=== PATIENT | female | born 1955 | race Caucasian/White ===

== ENCOUNTER → 2024-02-08 14:27 | Outpatient (REF) | payer OTHER, SELFPAY | LOC: RCS 14:27 | PROVIDERS: ATTENDING PHYSICIAN Internal Medicine Cardiovascular Disease; FAMILY PHYSICIAN Family Medicine; OTHER PHYSICIAN Obstetrics & Gynecology Gynecologic Oncology; REFERRING PHYSICIAN Obstetrics & Gynecology | DX: R55 Syncope and collapse (principal); C54.1 Malignant neoplasm of endometrium; C78.01 Secondary malignant neoplasm of right lung; C78.02 Secondary malignant neoplasm of left lung | CPT/HCPCS: 93306; 93356 ==

== ENCOUNTER → 2024-02-14 08:43 | Outpatient (REF) | payer OTHER, SELFPAY ==
[2024-02-14 09:08] VITALS: BP_SYST 67
[2024-02-14] MEDS: ATIVAN 0.5 MG IV (09:18)
[2024-02-14] MEDS: ANCEF 10 IV (09:43)
[2024-02-14 11:12] VITALS: BP 129/73
== END ==
LOC: RADI 08:43
PROVIDERS: ATTENDING PHYSICIAN Obstetrics & Gynecology Gynecologic Oncology; FAMILY PHYSICIAN Family Medicine
DX: C54.1 Malignant neoplasm of endometrium (principal); Z79.899 Other long term (current) drug therapy
CPT/HCPCS: 36561; 76937; 77001; 99152; 99153; C1788

== ENCOUNTER 2024-03-18 23:45 | Inpatient (IN) | payer OTHER, SELFPAY ==
[2024-03-18 15:53] VITALS: BP 107/77
[2024-03-18] MEDS: TYLENOL 650 MG PO (16:03)
[2024-03-18 16:46] LABS: COVID-19 Antigen Negative (Negative)
[2024-03-18 16:48] LABS: Blood Urea Nitrogen 18 mg/dl (7-17); Calcium 9.3 mg/dl (8.4-10.2); Carbon Dioxide 20 mmol/L (22-30); Chloride 100 mmol/L (98-107); Glucose 125 mg/dl (70-99); Sodium 132 mmol/L (135-145); eGFR > 60.00
--- NOTE | 2024-03-18 20:16 | ED.GENMED ---
History of Present Illness
<MIKE Branch - Last Filed: 03/18/24 22:41>
General
Chief Complaint: Fever
Source: patient
Exam Limitations: none
Time Seen by Provider: 03/18/24 19:46
Travel History
Have you had any contact with someone who has COVID-19?: No
Do you have any symptoms of coronavirus? Fever > 100 degrees, chills, cough, shortness of breath, sore throat, loss of taste or smell, muscle aches, or headache?: Yes
Symptoms:: fever
History of Present Illness
History of Present Illness:
This is a 69 year old female that comes in with c/o fever. States that she had a fever of 102 at home today. States that she called the Oncologist office and was told to come to the ER. States that she had chemotherapy of Adriamycin on Sunday and
she had her Neulasta injection on Sunday. Denies chills, chest pain, SOB, abd pain, nausea, vomiting, diarrhea, headache, dizziness, urinary burning.
Past History
<MIKE Branch - Last Filed: 03/18/24 22:41>
Past History
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
ED Past Surgical History: Cholecystectomy, , Gynecological (Hysterectomy) and Orthopedic (left total hip replacement )
Social History
Tobacco: Non-smoker
Alcohol: Occasional
Personal:
Living: with family
Review of Systems
<MIKE Branch - Last Filed: 03/18/24 22:41>
Review of Systems
All Other Systems: ROS reviewed and negative except as documented in HPI and ROS
Constitutional: Reports fever; Denies chills
EENT: Reports no symptoms
Respiratory: Reports no symptoms; Denies cough or trouble breathing
Cardiac: Reports no symptoms; Denies chest pain
ABD/GI: Reports no symptoms; Denies abdominal pain, nausea, vomiting or diarrhea
: Reports no symptoms; Denies dysuria, frequency or urgency
Musculoskeletal: Reports no symptoms
Skin: Reports no symptoms
Neurological: Reports no symptoms; Denies dizzy or headache
Psychiatric: Reports no symptoms
Phy Exam
<MIKE Branch - Last Filed: 03/18/24 22:41>
General Physical Exam
General Presentation: no apparent distress
General age: appears stated age
General Skin: warm and dry
General Habitus: normal
General Mental: alert
General Hydration: appears well hydrated
ENT Exam
ENT Exam: TM's normal, pharynx normal and neck supple
Eye Exam
Eye Exam: EOMI
Cardiovascular Exam
Cardiovascular Exam: regular rate/rhythm and normal peripheral pulses
Pulmonary Exam
Pulmonary Exam: lungs clear, no respiratory distress, no rales, chest non tender, no crackles, no rhonchi, no wheezing and no cough
Gastrointestinal Exam
Gastrointestinal Exam: normal bowel sounds, non tender, soft, no organomegaly, no pulsatile mass and non distended
Musculoskeletal Exam
Musculoskeletal Exam: full ROM and edema (Slight ankles)
Skin Exam
Skin Exam: normal color, warm/dry, no rash and no petechia
Psychiatric Exam
Psychiatric Exam: normal mood/affect
Course
<MIKE Branch - Last Filed: 03/18/24 22:41>
Orders/Labs/Results
Orders:
Orders
03/18/24 15:57
EKG [Electrocardiogram (*1)] Urgent
Reason for Study: Tachycardia
03/18/24 15:58
EKG- Treatment ONCE
03/18/24 16:00
Acetaminophen [Tylenol] 650 mg .ROUTE .STK-MED ONE
03/18/24 16:02
Acetaminophen [Tylenol] 650 mg PO NOW STA
03/18/24 16:08
Basic Metabolic Panel Urgent
COVID-19 Antigen Urgent
Source: Nasal Swab
Blood Culture Urgent
MARLENE Source: Blood/Venous
Specimen Description:
Influenza A+B Rapid Molecular Urgent
MARLENE Source: Nasal Swab
Specimen Description:
03/18/24 19:57
Complete Blood Count/With Diff Urgent
Lactate Level [Lactic Acid] Urgent
03/18/24 20:16
CR Chest - 2 Views Urgent
Comment:
Reason For Exam: Fever
03/18/24 20:27
Urinalysis Reflex To Culture Urgent
Date Specimen was Collected: 03/18/24
Time Specimen was Collected: 20:24
03/18/24 20:34
Blood Culture Urgent
MARLENE Source: Blood/Venous
Specimen Description:
Comment: From Port
03/18/24 22:32
Piperacillin/Tazo 3.375 Gram [Zosyn] 3.375 gram in 50 ml IV NOW
Vancomycin 1 Gram/200 ml [Vancocin] 1 gram in 200 ml IV NOW
03/18/24 22:59
Admit/Transfer Patient As Directed
Co-Sign Provider:
Level of Care: Inpatient admission
Assign to:: Medical/Surgical
Physician / Group: jaxson
Diagnosis: neutropenic sepsis
Reason for Hospitalization: neutropenic sepsis
Expected length of stay greater than two midnights?: Yes
ELOS- Estimated Length of Stay in days: 2
I certify the patient meets the requirements for IP care: Yes
Code Status As Directed
Resuscitation Status: Full Code
03/18/24 23:06
Consult Notification Routine
Specialty to Notify: Oncology
ONCOLOGY CONSULT Routine
Consulting Provider: Vikram Dunbar
Was physician already notified: No
Reason for consult: neutropenic sepsis
Abnormal Lab Results
03/18/24 03/18/24 03/18/24
16:08 19:57 20:27
WBC 0.8 L* 10^3/uL
(4.8-10.8)
RBC 3.12 L 10^6/uL
(4.20-5.40)
Hgb 10.8 L g/dL
(12.0-16.0)
Hct 29.1 L %
(37.0-47.0)
MCH 34.6 H pg
(27.0-31.0)
MCHC 37.1 H g/dL
(33.0-37.0)
Plt Count 64 L 10^3/uL
(130-400)
Absolute Neuts (auto) 0.2 L* 10^3/uL
(1.4-6.5)
Absolute Lymphs (auto) 0.3 L 10^3/uL
(1.2-3.4)
Immature Gran % 5.3 H %
(0-0.5)
Neutrophils % 32.1 L %
(42.2-75.2)
Basophils % 4.0 H %
(0-2)
Sodium 132 L mmol/L
(135-145)
Carbon Dioxide 20 L mmol/L
(22-30)
BUN 18 H mg/dl
(7-17)
Creatinine 0.5 L mg/dL
(0.6-1.0)
Glucose 125 H mg/dl
(70-99)
Urine Urobilinogen 2+ A
(Neg - 1+)
03/18/24 19:57
03/18/24 16:08
Pancytopenia, H/H low. Abs neuts Very low, Sodium slightly low. Carbon dioxide low. Dehydration. Glucose nonfasting. Lactic acid normal at 1.5, COVID and influenza negative, Urine negative for infection.
Vital Signs
Initial and Last Documented VS:
Initial Vital Signs
Temp Pulse Resp BP Pulse Ox
100.7 F H 110 19 107/77 96
03/18/24 15:53 03/18/24 15:53 03/18/24 15:53 03/18/24 15:53 03/18/24 15:53
Last Documented Vital Signs
Temp Pulse Resp BP Pulse Ox
98.1 F 110 19 107/77 96
03/18/24 20:37 03/18/24 15:53 03/18/24 15:53 03/18/24 15:53 03/18/24 15:53
<Vlad Rai, DO - Last Filed: 03/18/24 23:18>
Orders/Labs/Results
Orders:
Orders
03/18/24 15:57
EKG [Electrocardiogram (*1)] Urgent
Reason for Study: Tachycardia
03/18/24 15:58
EKG- Treatment ONCE
03/18/24 16:00
Acetaminophen [Tylenol] 650 mg .ROUTE .STK-MED ONE
03/18/24 16:02
Acetaminophen [Tylenol] 650 mg PO NOW STA
03/18/24 16:08
Basic Metabolic Panel Urgent
COVID-19 Antigen Urgent
Source: Nasal Swab
Blood Culture Urgent
MARLENE Source: Blood/Venous
Specimen Description:
Influenza A+B Rapid Molecular Urgent
MARLENE Source: Nasal Swab
Specimen Description:
03/18/24 19:57
Complete Blood Count/With Diff Urgent
Lactate Level [Lactic Acid] Urgent
03/18/24 20:16
CR Chest - 2 Views Urgent
Comment:
Reason For Exam: Fever
03/18/24 20:27
Urinalysis Reflex To Culture Urgent
Date Specimen was Collected: 03/18/24
Time Specimen was Collected: 20:24
03/18/24 20:34
Blood Culture Urgent
MARLENE Source: Blood/Venous
Specimen Description:
Comment: From Port
03/18/24 22:32
Piperacillin/Tazo 3.375 Gram [Zosyn] 3.375 gram in 50 ml IV NOW
Vancomycin 1 Gram/200 ml [Vancocin] 1 gram in 200 ml IV NOW
03/18/24 22:59
Admit/Transfer Patient As Directed
Co-Sign Provider:
Level of Care: Inpatient admission
Assign to:: Medical/Surgical
Physician / Group: jaxson
Diagnosis: neutropenic sepsis
Reason for Hospitalization: neutropenic sepsis
Expected length of stay greater than two midnights?: Yes
ELOS- Estimated Length of Stay in days: 2
I certify the patient meets the requirements for IP care: Yes
Code Status As Directed
Resuscitation Status: Full Code
03/18/24 23:06
Consult Notification Routine
Specialty to Notify: Oncology
ONCOLOGY CONSULT Routine
Consulting Provider: Vikram Dunbar
Was physician already notified: No
Reason for consult: neutropenic sepsis
Abnormal Lab Results
03/18/24 03/18/24 03/18/24
16:08 19:57 20:27
WBC 0.8 L* 10^3/uL
(4.8-10.8)
RBC 3.12 L 10^6/uL
(4.20-5.40)
Hgb 10.8 L g/dL
(12.0-16.0)
Hct 29.1 L %
(37.0-47.0)
MCH 34.6 H pg
(27.0-31.0)
MCHC 37.1 H g/dL
(33.0-37.0)
Plt Count 64 L 10^3/uL
(130-400)
Absolute Neuts (auto) 0.2 L* 10^3/uL
(1.4-6.5)
Absolute Lymphs (auto) 0.3 L 10^3/uL
(1.2-3.4)
Immature Gran % 5.3 H %
(0-0.5)
Neutrophils % 32.1 L %
(42.2-75.2)
Basophils % 4.0 H %
(0-2)
Sodium 132 L mmol/L
(135-145)
Carbon Dioxide 20 L mmol/L
(22-30)
BUN 18 H mg/dl
(7-17)
Creatinine 0.5 L mg/dL
(0.6-1.0)
Glucose 125 H mg/dl
(70-99)
Urine Urobilinogen 2+ A
(Neg - 1+)
03/18/24 19:57
03/18/24 16:08
Vital Signs
Initial and Last Documented VS:
Initial Vital Signs
Temp Pulse Resp BP Pulse Ox
100.7 F H 110 19 107/77 96
03/18/24 15:53 03/18/24 15:53 03/18/24 15:53 03/18/24 15:53 03/18/24 15:53
Last Documented Vital Signs
Temp Pulse Resp BP Pulse Ox
98.1 F 110 19 107/77 96
03/18/24 20:37 03/18/24 15:53 03/18/24 15:53 03/18/24 15:53 03/18/24 15:53
<MIKE Branch - Last Filed: 03/18/24 22:41>
MDM/Problems Addressed
Differential Diagnosis Includes:
Neutropenic fever, Viral syndrome
MDM/Problems Addressed:
This is a 69 year old female that comes in with c/o fever. States that she had a fever of 102 at home today and the Oncologist said to come to the ER.
Will check labs,urine and chest x-ray
Back into see patient. Explained that she would be admitted. Explained that her WBC. RBC and plt are very low along with the absolute Neuts. Will start antibiotics and admit. Hospitalist notified.
Chronic conditions affecting care: Cancer
Acute Exacerbation and/or Progression of Chronic Illness: Cancer
<MIKE Branch - Last Filed: 03/18/24 22:41>
*Radiology
Radiology exam reviewed: preliminary read by ED provider (Chest- negative for active disease) and radiology read reviewed (Chest- No acute disease of the chest. Possible bilateral lower lobe pulmonary nodules. These may be benign granulomas.
Nonurgent dedicated CT of the chest recommended when the patient is able. New. )
*Pulse Oximetry
Patient hypoxic: no
*EKG
Interpreted by ED Provider?: Yes
Heart Rate: 94
Rate: normal
Rhythm: sinus
[place]: left axis deviation
Interval: normal interval
QRS Pattern: low voltage
Ischemia: non-specific ST changes (T wave changes- V3, V4, V5, V6)
*Flame Gouger Interpretation
Rate: Flame Gouger- N/A
*Critical Care Note
Total Time (30-74mins, 75-104mins- exclusive of procedures): Not Applicable
ED Attending Note
<MIKE Branch - Last Filed: 03/18/24 22:41>
-
Portions of this chart may have been created with voice recognition software.� Occasional wrong word or��sound alike� substitutions may have occurred due to the inherent limitations of voice recognition software.
<Vlad Rai DO - Last Filed: 03/18/24 23:18>
ED Attending Note
Patient seen and examined by attending physician: Yes
I performed the substantive portion of visit, reviewed & personally made and approve the management plan that is documented in note by myself or LEI.: Yes
ED Attending Note:
I have reviewed and agree with history and treatment plan by Lorin West. Patient with pancytopenia, neutropenic fever. Agree with treatment plan.
Discharge Plan
Departure
Patient Disposition: Admit
Date of Disposition: 03/18/24
Time of Disposition: 22:37
Admit to: Med/Surg
Presentation/result/management discussed w/ accepting MD/DO: Hospitalist
Patient with high blood pressure during this ER visit?: No
Condition: Good
Covid-19: Not Applicable
Discharge Problem:
Neutropenia with fever, Pancytopenia
Prescriptions:
No Action
atenolol 100 MG tablet
100 mg PO DAILY
diphenhydramine HCl [Benadryl] 25 mg Capsule
25 mg PO DAILY PRN (Reason: seasonal allergies)
hydrochlorothiazide 25 mg Tablet
25 mg PO DAILY
losartan 100 mg Tablet
100 mg PO DAILY
prochlorperazine maleate 10 mg tablet
10 mg PO Q6H PRN (Reason: nausea/vomiting)
lidocaine-prilocaine 2.5-2.5 % cream
1 applic topical DAILY PRN (Reason: prior to port access)
Chemo
1 dose IV Q3W
Neulasta
1 dose SC Q3W
Referrals:
Gaurav Macario MD [Family Provider] -
Interventions
Interventions:
*Risk Screen - Suicide Last Done: 03/18/24 20:02
*General Assessment Last Done: 03/18/24 20:02
*Neglect/Abuse Screening Last Done: 03/18/24 20:02
ED- Fall Risk Assessment Last Done: 03/18/24 20:02
*ED COVID-19 Vaccine History Last Done: 03/18/24 20:02
ED- Neurological Assessment Last Done: 03/18/24 20:02
ED-Skin Assessment Last Done: 03/18/24 20:02
Discharge Date and Time
Print Language: [place]
[2024-03-18 20:38] LABS: Urine Albumin Negative (Neg - Trace); Urine Bilirubin Negative (Negative); Urine Character Clear (Clear); Urine Color Amber; Urine Glucose Negative (Negative); Urine Ketone Negative (Negative); Urine Leukocyte Negative (Negative); Urine Nitrite Negative (Negative); Urine Occult Blood Negative (Negative); Urine Specific Gravity 1.015 (<1.030); Urine Urobilinogen 2+ (Neg - 1+)
[2024-03-18 20:41] VITALS: BP 109/68
[2024-03-18 21:30] LABS: % Eosinophils 5.3 % (0-6); % Immature Granulocytes 5.3 % (0-0.5); % Lymphocytes 45.3 % (20.5-51.1); % Neutrophils 32.1 % (42.2-75.2); Absolute Lymphocytes 0.3 10^3/uL (1.2-3.4); Absolute Monocytes 0.1 10^3/uL (0.1-0.6); Hematocrit 29.1 % (37.0-47.0); Hemoglobin 10.8 g/dL (12.0-16.0); Mean Corp Hgb Conc. 37.1 g/dL (33.0-37.0); Mean Corpuscular Hgb 34.6 pg (27.0-31.0); Mean Corpuscular Volume 93.3 fL (81.0-99.0); Mean Platelet Volume 9.6 fL (7.4-10.4); Nucleated Red Blood Cells % 0 %; Platelet Count 64 10^3/uL (130-400); Red Blood Cell Count 3.12 10^6/uL (4.20-5.40); Red Cell Dist. Width 13.2 % (11.5-14.5)
[2024-03-18 21:40] LABS: Lactic Acid 1.5 mmol/L (0.7-2.0)
[2024-03-18 22:11] LABS: White Blood Cell Count 0.8 10^3/uL (4.8-10.8)
[2024-03-18 22:12] LABS: Absolute Neutrophils 0.2 10^3/uL (1.4-6.5)
--- NOTE | 2024-03-18 23:02 | HPS.HSE ---
Family Physician
-
Family Physician: Gaurav Macario
Chief Complaint
-
fever
History of Present Illness
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 Patient had fever 102 today. She called oncologist office
and was told to come to the emergency room. She had chemotherapy with Adriamycin last week. She had Neulasta injection 6 days ago. Denies chest pain, cough, sore throat, runny nose shortness of breath, abdominal pain, nausea vomiting, diarrhea,
headache, dizziness, urinary symptoms, rashes.
Denies smoking or alcohol use.
Patient follows Dr. Martinez and Dr. Yu.
Medical History
Past Medical History
Past Medical History: Reports Other (uterine sarcoma with metastases to lung on chemotherapy, hypertension, osteoarthritis, hyperlipidemia)
Past Surgical History: Reports Other (Cholecystectomy, , Gynecological (Hysterectomy) and Orthopedic (left total hip replacement ))
Social History
Tobacco: Non-smoker
Alcohol: None
Drug: None
Family History
Family History: Not pertinent
Allergies / Home Medications
Allergies reflects when Allergies were last updated in [employer].
Home Medications with original date entered in [employer]
Allergy/Medication List:
Allergies
Allergy/AdvReac Type Severity Reaction Status Date / Time
gluten Allergy Unknown Verified 03/18/24 16:01
No Known Drug Allergies Allergy Unknown Verified 03/18/24 16:01
seasonal Allergy sneezing Uncoded 03/18/24 16:01
Home Medications
atenolol 100 mg tablet 100 mg PO DAILY 05/26/11
diphenhydramine HCl 25 mg capsule (Benadryl) 25 mg PO DAILY PRN seasonal allergies 07/23/23
hydrochlorothiazide 25 mg tablet 25 mg PO DAILY 07/23/23
losartan 100 mg tablet 100 mg PO DAILY 07/23/23
Chemo 1 dose IV Q3W 03/18/24
Neulasta 1 dose SC Q3W 03/18/24
lidocaine-prilocaine 2.5 %-2.5 % topical cream 1 applic topical DAILY PRN prior to port access 03/18/24
prochlorperazine maleate 10 mg tablet 10 mg PO Q6H PRN nausea/vomiting 03/18/24
Review of Systems
-
History Source: Patient
A 12 point ROS was completed and negative except as noted: Yes
Constitutional: Reports Fever
EENT: Reports No Symptoms
Respiratory: Reports No Symptoms
Cardiac: Reports No Symptoms
Abdomen/GI: Reports No Symptoms
: Reports No Symptoms
Musculoskeletal: Reports No Symptoms
Skin: Reports No Symptoms
Neurological: Reports No Symptoms
Endocrine: Reports No Symptoms
Hematologic/Lymphatic: Reports No Symptoms
Psych: Reports No Symptoms
Physical Exam
Vital Signs
Vital Signs
Temp Pulse Resp BP Pulse Ox
98.1 F 110 19 107/77 96
03/18/24 20:37 03/18/24 15:53 03/18/24 15:53 03/18/24 15:53 03/18/24 15:53
Physical Exam
General: Well Developed, Well Nourished and No Apparent Distress
HEENT: NormoCephalic, Moist mucous membranes and Atraumatic
Respiratory: Clear
Cardiac: S1/S2 and Regular Rhythm; No Murmur or Rub
GI: Soft, Non Tender, Non Distended and Normal Bowel Sounds; No Organomegaly
Rectal: Deferred by Provider
Musculoskeletal: No Clubbing, No Cyanosis and No Edema
Skin: No Rash
Neuro: Nonfocal/grossly intact
Laboratory Results
-
03/18/24 19:57
03/18/24 16:08
Laboratory Results
Lactic Acid 1.5 mmol/L (0.7-2.0) 06/04/24 19:57
Total Bilirubin Cancelled 03/18/24 16:08
AST Cancelled 03/18/24 16:08
ALT Cancelled 03/18/24 16:08
Alkaline Phosphatase Cancelled 03/18/24 16:08
Data Reviewed
-
Lab Data: Labs Reviewed by me
Old Records: Reviewed
Impression/Plan
-
IMPRESSION:
PLAN:
# Neutropenic sepsis (fever, tachycardia, leukopenia) unknown source in the setting of chemotherapy
-ANC of 200
-Urinalysis negative
-Chest x-ray shows no acute disease of the chest, possible bilateral lower lobe pulmonary nodules which may be benign granulomas
-COVID, influenza negative
-Check blood cultures
-IV fluids
-Vancomycin, cefepime
# Pancytopenia secondary to chemotherapy
-Oncology consulted
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
Essential hypertension
-Continue losartan
-Hold hydrochlorothiazide
-Continue atenolol
Osteoarthritis
Hyperlipidemia
Full code
DVT prophylaxis�SCDs
Regular diet
[2024-03-18] MEDS: ZOSYN 50 IV (23:09)
[2024-03-18] MEDS: VANCOCIN 200 IV (23:43)
[2024-03-18 23:46] VITALS: BP 95/68
[2024-03-19] VITALS (16 sets, daily range): BP systolic 92–128; BP diastolic 46–85; BMI 33.9; BMI 34.1
--- NOTE | 2024-03-19 02:05 | PHA.VAN.IN ---
Assessment
- Assessment
Renal Function: Appears similar to baseline
Maximum Temperature: 100.7 F
Concomitant Antimicrobials: CEFEPIME
AUC Dosing Plan
- Dosing Variables
Dosing Weight (kg): 64 (ADJUSTED BODY WEIGHT)
Dosing CrCl (ml/min): 103
Vd coefficient (L/kg): 0.7
- Empiric Dosing
Initial / Loading Dose: 2000 MG SPLIT LOAD
Maintenance Regimen: 1000 MG Q12H
Estimated AUC (mcg*h/mL): 530
Estimated Peak (mcg*h/mL): 33.8
Estimated Trough (mcg/ml): 13.2
Estimated Half Life (H): 7.7
- Monitoring
No levels ordered at this time: CONSIDER LEVEL PRIOR TO 4TH MAINTENANCE DOSE
Pharmacokinetics Vancomycin I
- -
Patient Age: 69
Patient Sex: Female
Vancomycin Day #: 1
Indication: Bacteremia
Requesting Provider: DR. TRINH
Height / Weight:
Height 5 ft 2 in
Actual Weight 84 kg
IBW in k.1
Adjusted BW in k.7
Pertinent Past Medical History: UTERINE SARCOMA WITH METASTASES ON CHEMOTHERAPY
- Vital Signs / Lab Results
Temp Pulse Resp BP Pulse Ox
98.0 F 76 12 94/64 97
03/18/24 23:18 03/19/24 01:30 03/19/24 01:30 03/19/24 01:00 03/19/24 01:30
Lab Results - Hematology
03/18/24 03/18/24
16:08 19:57
WBC Cancelled 0.8 L*
Lab Results - Chemistry
03/18/24
16:08
BUN 18 H
Creatinine 0.5 L
Albumin Cancelled
03/18/24
19:57
Lactic Acid 1.5
Lab Results - Urine
03/18/24
20:27
Urine Nitrite (Reflex) Negative
Leukocyte Esterase Rfl Negative
Microbiology Results
03/18/24 16:08 Influenza Types A & B ([facility]) - Final
Nasal Swab Negative for Influenza A & B, NAAT
Negative results must be combined with clinical observations
and patient history.
Nucleic Acid Amplification test (NAAT)performed on the
[employer] platform.
[2024-03-19] MEDS: VANCOCIN 200 IV (02:24)
[2024-03-19] MEDS: NSS 1000 IV ×3 (02:25→21:54)
[2024-03-19] MEDS: MAXIPIME 2000 MG IV ×3 (04:27→20:15)
[2024-03-19] MEDS: STERILE WATER FOR INJECTION 10 ML IV ×3 (04:27→20:16)
--- NOTE | 2024-03-19 05:45 | CON.ONC ---
Impression
Impression
Neutropenic fever
Pancytopenia secondary to chemotherapy
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
Plan
Plan
Initial ANC of 200
Vancomycin, cefepime pending cultures
No role for additional G-CSF.
Monitor CBC and cultures.
Patient History
History of Present Illness
CC: Fever 102
HPI: Fadumo is a 69-year-old female with metastatic uterine sarcoma with pulmonary metastasis on Adriamycin 60 mg/m� every 3 weeks with Neulasta growth factor support. Cycle # 2 given 03/11 with Neulasta 03/12. Her only symptom is a mild non
productive cough. Denies chest pain, shortness of breath, abdominal pain, nausea, vomiting, diarrhea, headache. Admitted for IV antibiotics
Past-Medical/Surgical History
Past Medical History
Hypertension
Hyperlipidemia
Osteoarthritis
Celiac disease
Surgical History
Appendectomy
section
Laparoscopic cholecystectomy
[place]/BSO
Social History
Patient denies ever using tobacco.
Current alcohol user.
Denies any illicit drug use.
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
Marital Status: Patient is
Patient Medication
�Medication �Instructions �Recorded �Confirmed �Last Taken �Type
atenolol 100 mg tablet 100 mg PO DAILY 05/26/11 03/18/24 03/17/24 History
diphenhydramine HCl 25 mg capsule 25 mg PO DAILY PRN seasonal 07/23/23 03/18/24 Unknown History
(Benadryl) allergies
hydrochlorothiazide 25 mg tablet 25 mg PO DAILY 07/23/23 03/18/24 03/17/24 History
losartan 100 mg tablet 100 mg PO DAILY 07/23/23 03/18/24 03/17/24 History
Chemo 1 dose IV Q3W 03/18/24 03/18/24 03/11/24 History
Neulasta 1 dose SC Q3W 03/18/24 03/18/24 03/12/24 History
lidocaine-prilocaine 2.5 %-2.5 % 1 applic topical DAILY PRN prior 03/18/24 03/18/24 Unknown History
topical cream to port access
prochlorperazine maleate 10 mg 10 mg PO Q6H PRN nausea/vomiting 03/18/24 03/18/24 Unknown History
tablet
Active Medications
Generic Name Dose Route Start Last Admin
Trade Name Freq PRN Reason Stop Dose Admin
Atenolol 100 mg 03/19/24 08:00
Atenolol 50 Mg Tablet PO 04/16/24 07:59
DAILY FRANCA
Cefepime HCl 2,000 mg 03/19/24 04:00 03/19/24 04:27
Cefepime Hcl 2,000 Mg/12.5 Ml Vial IV 2,000 mg
Q8H FRANCA Administration
Diphenhydramine HCl 25 mg 03/19/24 00:36
Diphenhydramine 25 Mg Capsule PO 04/16/24 00:35
DAILY PRN
seasonal allergies
Sodium Chloride 1,000 mls @ 100 mls/hr 03/19/24 00:36 03/19/24 02:25
Nss IV 1,000 mls
.Q10H FRANCA Administration
Vancomycin HCl 1 gram in 200 mls @ 200 mls/hr 03/19/24 12:00
Vancocin IV
Q12H FRANCA
Lidocaine/Prilocaine 0 gram 03/19/24 00:36
Lidocaine 2.5%/Prilocaine 2.5% (Cream) 5 Gram Tube TOPICAL 04/16/24 00:35
DAILY PRN
prior to port access
Losartan Potassium 100 mg 03/19/24 08:00
Losartan 100 Mg Tablet PO 04/16/24 07:59
DAILY FRANCA
Prochlorperazine Maleate 10 mg 03/19/24 00:36
Prochlorperazine 10 Mg Tablet PO 04/16/24 00:35
Q6H PRN
nausea/vomiting
Sodium Chloride 0 flush 03/19/24 02:00
Sodium Chloride 0.9% (Flush) Syringe IV 04/16/24 01:59
PER PROTOCOL FRANCA
Sterile Water 10 ml 03/19/24 04:00 03/19/24 04:27
Sterile Water For Injection 10 Ml Vial IV 04/16/24 03:59 10 ml
Q8H FRANCA Administration
Physical Exam
-
General: Well Developed, Well Nourished, No Apparent Distress and Other (Non-Toxic)
HEENT: Negative Jaundice
Cardiology: S1 and S2
Pulmonary: Clear; Negative Wheezes or Rhonchi
GI: Soft and Normal Bowel Sounds
Musculoskeletal: No Clubbing, No Cyanosis and No Edema
Neurology: Non Focal
Psych: Calm
Labs
Lab Results
WBC 0.8 10^3/uL (4.8-10.8) L* 03/18/24 19:57
RBC 3.12 10^6/uL (4.20-5.40) L 03/18/24 19:57
Hgb 10.8 g/dL (12.0-16.0) L 03/18/24 19:57
Hct 29.1 % (37.0-47.0) L 03/18/24 19:57
MCV 93.3 fL (81.0-99.0) 03/18/24 19:57
MCH 34.6 pg (27.0-31.0) H 03/18/24 19:57
MCHC 37.1 g/dL (33.0-37.0) H 03/18/24 19:57
RDW 13.2 % (11.5-14.5) 03/18/24 19:57
Plt Count 64 10^3/uL (130-400) L 03/18/24 19:57
MPV 9.6 fL (7.4-10.4) 03/18/24 19:57
Abs Immat Gran (auto) 0.0 10^3/uL (0-0.05) 03/18/24 19:57
Absolute Neuts (auto) 0.2 10^3/uL (1.4-6.5) L* 03/18/24 19:57
Absolute Lymphs (auto) 0.3 10^3/uL (1.2-3.4) L 03/18/24 19:57
Absolute Monos (auto) 0.1 10^3/uL (0.1-0.6) 03/18/24 19:57
Absolute Eos (auto) 0.0 10^3/uL (0-0.7) 03/18/24 19:57
Absolute Basos (auto) 0.0 10^3/uL (0-0.2) 03/18/24 19:57
Immature Gran % 5.3 % (0-0.5) H 03/18/24 19:57
Neutrophils % 32.1 % (42.2-75.2) L 03/18/24 19:57
Lymphocytes % 45.3 % (20.5-51.1) 03/18/24 19:57
Monocytes % 8.0 % (1.7-9.3) 03/18/24 19:57
Eosinophils % 5.3 % (0-6) 03/18/24 19:57
Basophils % 4.0 % (0-2) H 03/18/24 19:57
Creatinine 0.5 mg/dL (0.6-1.0) L 03/18/24 16:08
Vital Signs
Vital Signs
Temp Pulse Resp BP Pulse Ox
98.0 F 87 23 94/46 92
03/18/24 23:18 03/19/24 05:30 03/19/24 05:30 03/19/24 05:00 03/19/24 05:30
[2024-03-19 06:59] LABS: % Basophils 2.1 % (0-2); % Eosinophils 6.3 % (0-6); % Immature Granulocytes 2.1 % (0-0.5); % Lymphocytes 41.7 % (20.5-51.1); % Monocytes 6.3 % (1.7-9.3); % Neutrophils 41.5 % (42.2-75.2); Absolute Lymphocytes 0.2 10^3/uL (1.2-3.4); Absolute Neutrophils 0.2 10^3/uL (1.4-6.5); Hematocrit 25.3 % (37.0-47.0); Hemoglobin 9.1 g/dL (12.0-16.0); Mean Corpuscular Hgb 33.8 pg (27.0-31.0); Mean Corpuscular Volume 94.1 fL (81.0-99.0); Mean Platelet Volume 10.1 fL (7.4-10.4); Nucleated Red Blood Cells % 0 %; Platelet Count 47 10^3/uL (130-400); Red Blood Cell Count 2.69 10^6/uL (4.20-5.40)
--- NOTE | 2024-03-19 07:12 | W.PN.HOSP.TC ---
Addendum entered and electronically signed by Yevgeniy Mendoza MD 03/19/24 23:31:
Attending Addendum-
I saw and evaluated the patient. I reviewed the resident�s note and agree with findings and plan as documented in the resident�s note. Patient with no complaints. had fever on 03/18 @1500. Very pleasant Full 12 point ROS reviewed and negative except
as documented Exam: Vitals reviewed in chart GEN-NAD heart RRR lungs clear abd soft LE no edema
# Febrile Neutropenic sepsis- unknown source in the setting of chemotherapy
-ANC of 200-->200
-Urinalysis negative
-Chest x-ray shows no acute disease of the chest, possible bilateral lower lobe pulmonary nodules which may be benign granulomas
-COVID, influenza negative
-blood cultures NGTD
- febrile 03/18 @ 1500
- cont IV fluids
- DC Vancomycin- no indication/MRSA risk check MRSA swab
- cont cefepime
- monitor daily CBC/anc
- DC if afebrile x 24 hours cx neg and anc > 1000
# Pancytopenia secondary to chemotherapy
- Oncology input appreciated
- s/p neulasta last week
- on adriamycin
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
- onc on board
- adriamycin as OP
# Essential hypertension
-Continue losartan
-Hold hydrochlorothiazide
-Continue atenolol
# Osteoarthritis
# HLD
Full code
DVT prophylaxis�SCDs
Regular diet
Time spent coordinating care, review of plan of care with resident, review of records, med rec, consults, notes, labs, rads, d/w nursing � 55 mins
Original Note:
Today's Communication/Plan
-
- Discontinue vancomycin
- Continue cefepime only.
- Continue IV hydration.
- Follow CBC and BMP.
Assessment / Plan
Assessment / Plan
Assessment
Fadumo Algeo, age 69, came to the emergency on 03-18-24 after she had a 102 F fever at home. She has a history of uterine sarcoma lung metastasis. She underwent a hysterectomy in August 2023, and has been on adriamycin since January 2024. She called
oncologist office and was told to go to the emergency room. Her last dose of adriamycin was on 03-12-24, followed by pegfilgrastim on 03-13-24. Blood work in the emergency was notable for pancytopenia, including significant neutropenia (ANC 200) and
leukopenia (WBC 800). WBC, hemoglobin and platelets down-trended slightly on the next day. She received vancomycin and cefepime empirically with IV fluids, and was admitted for further management. Patient follows Dr. Martinez and Dr. Yu.
Impression
- Sepsis of unknown source/neutropenic fever
- Pancytopenia, secondary to chemotherapy
- Uterine sarcoma with pulmonary metastasis
- Essential hypertension
- Hyperlipidemia
Plan
Sepsis of unknown source/neutropenic fever
- Meets SIRS criteria.
- ANC of 200 on 03-18-24 and 03-19-24.
- UA, CXR, COVID, influenza, urine and blood cultures, review of system, and physical examination have been unremarkable.
- No recent ill exposures that she is aware of.
- Does have two parakeets at home around her.
- Pending blood and urine cultures
- Vitals have remained stable since her arrival.
- Can discontinue vancomycin.
- Will only keep cefepime for now.
- IV fluids.
Pancytopenia, secondary to chemotherapy
- Heme/onc following.
- Follow CBC.
Uterine sarcoma with pulmonary metastasis
- Last dose of adriamycin on 03-12-24.
Essential hypertension
- Continue losartan and atenolol.
- Hold hydrochlorothiazide.
DVT prophylaxis
- SCD.
Code status
- Full.
Anticipated Discharge: 24 - 48 hours
Subjective/Interval History
-
Date of Service: March 19, 2024
Objective Data
-
Labs:
Laboratory Results
03/18/24 03/19/24
19:57 06:18
WBC 0.8 L* Pending
Hgb 10.8 L Pending
Hct 29.1 L Pending
Plt Count 64 L Pending
Sodium Pending
Potassium Pending
Chloride Pending
Carbon Dioxide Pending
BUN Pending
Creatinine Pending
Glucose Pending
Calcium Pending
Total Bilirubin Pending
AST Pending
ALT Pending
Alkaline Phosphatase Pending
Vital Signs:
Vital Signs
Temp Pulse Resp BP Pulse Ox
98.0 F 79 17 94/46 95
03/18/24 23:18 03/19/24 05:45 03/19/24 05:45 03/19/24 05:00 03/19/24 05:45
Review of Systems
-
History Source: Patient
Constitutional: Reports Fever
EENT: Reports No Symptoms Reported
Respiratory: Reports No Symptoms
Cardiac: Reports No Symptoms
Abdomen/GI: Reports No Symptoms
Breast: Reports No Symptoms
Genitourinary: Reports No Symptoms
Musculoskeletal: Reports No Symptoms
Skin: Reports No Symptoms
Neuro: Reports No Symptoms
Endocrine: Reports No Symptoms
Hematologic / Lymphatic: Reports No Symptoms
Allergy / Immunology: Reports No Symptoms
Physical Exam
-
General: No Apparent Distress and Comfortable
HEENT: Normocephalic, Atraumatic, Moist Mucous Membranes and Anicteric
Respiratory: Clear to Auscultation and Non Labored Respirations
Cardiac: Regular Rhythm and S1/S2
GI: Soft, Nontender, Nondistended, Normal Bowel Sounds and No Hepatosplenomegaly
Genito-urinary: No Costovertebral Tender
Musculoskeletal: No Clubbing, No Cyanosis and No Edema
Skin: Warm, Dry and IV Access / Catheter Site
Neuro: Awake, Alert, Oriented and Nonfocal/Grossly Intact
Hematologic / Lymphatic: No Lymphadenopathy
Psych: Calm
[2024-03-19 07:14] LABS: White Blood Cell Count 0.5 10^3/uL (4.8-10.8)
[2024-03-19 07:39] LABS: ALT (SGPT) 20 U/L (0-35); AST (SGOT) 20 U/L (14-36); Alkaline Phosphatase 67 U/L (38-126); Blood Urea Nitrogen 17 mg/dl (7-17); Calcium 8.6 mg/dl (8.4-10.2); Carbon Dioxide 28 mmol/L (22-30); Chloride 101 mmol/L (98-107); Estimated Creatinine Clearance 86 ml/min; Glucose 104 mg/dl (70-99); Potassium 3.2 mmol/L (3.5-5.1); Sodium 134 mmol/L (135-145); Total Bilirubin 0.7 mg/dl (0.2-1.3); Total Protein 5.1 g/dl (6.3-8.2); eGFR > 60.00
--- NOTE | 2024-03-19 08:08 | PHA.VAN.FU ---
Addendum entered and electronically signed by Kat Colon [facility] 03/19/24 10:23:
Correction day #1
Original Note:
Vancomycin Assessment / Plan
- Assessment
Renal Function: Stable
Neutropenia: ANC = 200
Concomitant Antimicrobials: cefepime
- Dosing Plan
Continue: Vanc 1000mg Q12H - adjust start time to 1800
- Monitoring Plan
No level(s) ordered at this time: consider levels in next few days
- Follow Up
Pharmacy will continue to follow.
Vancomycin Follow UP
- -
Patient Age: 69
Patient Sex: Female
Vancomycin Day #: 2
Indication: Bacteremia
Requesting Provider: Dr. Martines
Pertinent Antimicrobial Allergies:
no pertinent antibiotic allergies
Height / Weight:
Height 5 ft 2 in
Actual Weight 84 kg
IBW in k.1
Adjusted BW in k.7
Pertinent Past Medical History: BMI ~34, Metastatic uterine sarcoma
- Vital Signs / Lab Results
Temp Pulse Resp BP Pulse Ox
98.6 F 82 20 113/76 98
03/19/24 07:53 03/19/24 07:45 03/19/24 07:45 03/19/24 07:00 03/19/24 07:59
Lab Results - Hematology
03/18/24 03/18/24 03/19/24
16:08 19:57 06:18
WBC Cancelled 0.8 L* 0.5 L*
Lab Results - Chemistry
03/18/24 03/19/24
16:08 06:18
BUN 18 H 17
Creatinine 0.5 L 0.5 L
Estimated Creat Clear 86
Albumin Cancelled 3.0 L
03/18/24
19:57
Lactic Acid 1.5
Lab Results - Urine
03/18/24
20:27
Urine Nitrite (Reflex) Negative
Leukocyte Esterase Rfl Negative
Microbiology Results
03/18/24 16:08 Influenza Types A & B (CARMITA) - Final
Nasal Swab Negative for Influenza A & B, NAAT
Negative results must be combined with clinical observations
and patient history.
Nucleic Acid Amplification test (NAAT)performed on the
[employer] platform.
[2024-03-19] MEDS: TENORMIN 100 MG PO (08:36)
[2024-03-19] MEDS: COZAAR 100 MG PO (08:36)
--- NOTE | 2024-03-19 14:57 | PTCARENOTE ---
Received patient from ED into room 2128. Patient AAOx3, VSS, ambulatory in room with standby assist. NSS infusing at 100 ml/hr through R subq port. Patient denies any pain at this time. Patient oriented to room and call pradhan, patient states no
concerns at this time.
[2024-03-19] MEDS: TYLENOL 650 MG PO (20:29)
[2024-03-20] MEDS: MAXIPIME 2000 MG IV ×3 (03:36→20:12)
[2024-03-20] MEDS: STERILE WATER FOR INJECTION 10 ML IV ×3 (03:36→20:13)
[2024-03-20 05:02] LABS: % Basophils 3.4 % (0-2); % Eosinophils 10.3 % (0-6); % Immature Granulocytes 1.1 % (0-0.5); % Lymphocytes 37.9 % (20.5-51.1); % Monocytes 11.5 % (1.7-9.3); % Neutrophils 35.8 % (42.2-75.2); Absolute Eosinophils 0.1 10^3/uL (0-0.7); Absolute Lymphocytes 0.3 10^3/uL (1.2-3.4); Absolute Monocytes 0.1 10^3/uL (0.1-0.6); Hematocrit 23.9 % (37.0-47.0); Hemoglobin 8.6 g/dL (12.0-16.0); Mean Corpuscular Hgb 34.8 pg (27.0-31.0); Mean Corpuscular Volume 96.8 fL (81.0-99.0); Mean Platelet Volume 9.5 fL (7.4-10.4); Nucleated Red Blood Cells % 0 %; Platelet Count 34 10^3/uL (130-400); Red Blood Cell Count 2.47 10^6/uL (4.20-5.40); Red Cell Dist. Width 13.1 % (11.5-14.5)
[2024-03-20 05:12] LABS: White Blood Cell Count 0.9 10^3/uL (4.8-10.8)
[2024-03-20 05:38] LABS: Blood Urea Nitrogen 13 mg/dl (7-17); Calcium 8.1 mg/dl (8.4-10.2); Carbon Dioxide 25 mmol/L (22-30); Chloride 111 mmol/L (98-107); Estimated Creatinine Clearance 87 ml/min; Glucose 92 mg/dl (70-99); Potassium 3.2 mmol/L (3.5-5.1); Sodium 141 mmol/L (135-145); eGFR > 60.00
[2024-03-20] MEDS: NSS 1000 IV ×2 (06:15→10:39)
[2024-03-20 07:15] VITALS: BP 127/72
--- NOTE | 2024-03-20 08:01 | W.PN.GYNONC ---
Today's Communication
-
This patient is well-known to me with history of uterine sarcoma, has had recurrence involving multiple small pulmonary nodules. She has recently been started on Adriamycin and despite support with Neulasta she appears to have had a fever while
neutropenic. Overall she looks well and does not look toxic. I suspect she may be ready for discharge home once her white blood cell count is above 1K. She remains afebrile. Will follow up as outpatioent with me. May need to consider a slight dose
reduction. Likely risk factor is prior pelvic RT reducing increasing her myelosuppression risk.
Ramiro Yates MD
Impression / Plan
-
neutropenic fever - nothing to add to plan
pancytopenia from chemotherapy
metastatic uterine sarcoma
Subjective / Interval History
-
69 yr old white female admitted for neutropenia fever and pancytopenia related to recent chemotherapy for metastatic uterine sarcoma
She is feeling better no complaints She is asking when she can be discharged
Objective Data
-
Lab Results:
03/20/24 04:50
03/20/24 04:50
Physical Exam
Vital Signs / I&O
Vitals
Temp Pulse Resp BP Pulse Ox
98.5 F 83 16 112/64 98
03/19/24 23:34 03/19/24 23:34 03/19/24 23:34 03/19/24 23:34 03/19/24 23:34
I&O
03/18/24 03/19/24 03/20/24 03/21/24
06:59 06:59 06:59 06:59
Intake Total 3440 / 3440
Balance 3440 / 3440
Physical Exam
VSS afebrile
alert and oriented x3
Data Reviewed
-
Lab Data: Discussed with Physician
[2024-03-20 08:45] LABS: Absolute Neutrophils 0.3 10^3/uL (1.4-6.5)
[2024-03-20] MEDS: COZAAR 100 MG PO (09:07)
[2024-03-20] MEDS: TENORMIN 100 MG PO (09:09)
--- NOTE | 2024-03-20 11:09 | W.PN.HOSP.TC ---
Addendum entered and electronically signed by Yevgeniy Mendoza MD 03/20/24 23:15:
Attending Addendum-
I saw and evaluated the patient. I reviewed the resident�s note and agree with findings and plan as documented in the resident�s note. No complaints. Ready to go home. last fever on 03/18 @1500. Very pleasant Full 12 point ROS reviewed and negative
except as documented Exam: Vitals reviewed in chart GEN-NAD heart RRR lungs clear abd soft LE no edema
# Febrile Neutropenic sepsis- unknown source in the setting of chemotherapy
-ANC of 300
-Urinalysis negative
-Chest x-ray shows no acute disease of the chest, possible bilateral lower lobe pulmonary nodules which may be benign granulomas
-COVID, influenza negative
-blood cultures NGTD
- febrile 03/18 @ 1500
- DC IV fluids
- DC Vancomycin- no indication/MRSA risk MRSA swab neg
- cont cefepime for now
- monitor daily CBC/anc
- DC if afebrile x 24 hours cx neg and anc > 1000
# Pancytopenia secondary to chemotherapy
- Oncology input appreciated
- s/p neulasta last week
- on adriamycin
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
- appreciate gyne onc input
- adriamycin as OP
# Essential hypertension
-Continue losartan
-Hold hydrochlorothiazide
-Continue atenolol
# Osteoarthritis
# HLD
Full code
DVT prophylaxis�SCDs
Regular diet
Dispo DC in am likely if ANC > 1000
Time spent coordinating care, review of plan of care with resident, review of records, med rec, consults, notes, labs, rads, d/w nursing amd onc� 54 mins
Original Note:
Today's Communication/Plan
-
- Follow CBC.
- Continue cefepime today.
- Replete potassium; will check magnesium.
- Safe to discharge when WBC >1000 per heme/onc.
Assessment / Plan
Assessment / Plan
Assessment
Fadumo Dent, age 69, came to the emergency on 03-18-24 after she had a 102 F fever at home. She has a history of uterine sarcoma lung metastasis. She underwent a hysterectomy in August 2023, and has been on adriamycin since January 2024. She called
oncologist office and was told to go to the emergency room. Her last dose of adriamycin was on 03-12-24, followed by pegfilgrastim on 03-13-24. Blood work in the emergency was notable for pancytopenia, including significant neutropenia (ANC 200) and
leukopenia (WBC 800). WBC, hemoglobin and platelets down-trended slightly on the next day. She received vancomycin and cefepime empirically with IV fluids, and was admitted for further management. Patient follows Dr. Martinez and Dr. Yu.
Impression
- Sepsis of unknown source/neutropenic fever
- Pancytopenia, secondary to chemotherapy
- Uterine sarcoma with pulmonary metastasis
- Hypokalemia
- Essential hypertension
- Hyperlipidemia
Plan
Sepsis of unknown source/neutropenic fever
- Met SIRS criteria.
- ANC of 200 on 03-18-24 and 03-19-24; improved to 300 on 03-20-24.
- UA, CXR, COVID, influenza, urine and blood cultures, review of system, and physical examination have been unremarkable.
- No recent ill exposures that she is aware of.
- Does have two parakeets at home around her.
- Blood and urine cultures show no growth.
- Vitals have remained stable since her arrival.
- Can discontinue vancomycin; patient stable with no clear source of an infection.
- Will keep cefepime for now.
- Discontinue IV fluids today.
- If WBC >1000 tomorrow, she can be discharged per heme/onc.
Pancytopenia, secondary to chemotherapy
- WBCs have been 800 (03-18-24) -> 500 (03-19-24) -> 900 (03-20-24).
- Heme/onc following.
- Follow CBC.
- Okay to discharge when WBC >1000 per heme/onc.
Uterine sarcoma with pulmonary metastasis
- Last dose of adriamycin on 03-12-24.
Hypokalemia
- Mild; replete.
Essential hypertension
- Continue losartan and atenolol.
- Hold hydrochlorothiazide.
DVT prophylaxis
- SCD.
Code status
- Full.
Anticipated Discharge: 24 - 48 hours
Subjective/Interval History
-
Date of Service: March 20, 2024
Objective Data
-
Labs:
Laboratory Results
03/20/24
04:50
WBC 0.9 L*
Hgb 8.6 L
Hct 23.9 L
Plt Count 34 L D
Sodium 141
Potassium 3.2 L
Chloride 111 H
Carbon Dioxide 25
BUN 13
Creatinine 0.5 L
Glucose 92
Calcium 8.1 L
Vital Signs:
Vital Signs
Temp Pulse Resp BP Pulse Ox
98.3 F 79 16 127/72 95
03/20/24 07:15 03/20/24 09:09 03/20/24 07:15 03/20/24 09:09 03/20/24 07:15
I&O
03/19/24 03/20/24 03/21/24
06:59 06:59 06:59
Intake Total 3440 / 3440
Balance 3440 / 3440
Review of Systems
-
History Source: Patient
Constitutional: Reports No Symptoms
EENT: Reports No Symptoms Reported
Respiratory: Reports No Symptoms
Cardiac: Reports No Symptoms
Abdomen/GI: Reports No Symptoms
Breast: Reports No Symptoms
Genitourinary: Reports No Symptoms
Musculoskeletal: Reports No Symptoms
Skin: Reports No Symptoms
Neuro: Reports No Symptoms
Endocrine: Reports No Symptoms
Hematologic / Lymphatic: Reports No Symptoms
Allergy / Immunology: Reports No Symptoms
Physical Exam
-
General: No Apparent Distress and Comfortable
HEENT: Normocephalic, Atraumatic, Moist Mucous Membranes and Anicteric
Respiratory: Clear to Auscultation and Non Labored Respirations
Cardiac: Regular Rhythm and S1/S2
GI: Soft, Nontender, Nondistended, Normal Bowel Sounds and No Hepatosplenomegaly
Genito-urinary: No Costovertebral Tender
Musculoskeletal: No Clubbing, No Cyanosis and No Edema
Skin: Warm, Dry and IV Access / Catheter Site
Neuro: Awake, Alert, Oriented and Nonfocal/Grossly Intact
Hematologic / Lymphatic: No Lymphadenopathy
Psych: Calm
--- NOTE | 2024-03-20 11:24 | W.PN.ONC ---
Today's Communication / Plan
-
Initial ANC of 300
Vancomycin, cefepime
Received Neulasta
Monitor CBC and cultures
Subjective/Objective
Subjective/Objective
Patient without new complaints. No rigors.
Vital Signs:
Vital Signs
Temp Pulse Resp BP Pulse Ox
98.3 F 79 16 127/72 95
03/20/24 07:15 03/20/24 09:09 03/20/24 07:15 03/20/24 09:09 03/20/24 08:15
Physical Exam
General: Well Developed, Well Nourished, No Apparent Distress and Other (Non-Toxic)
HEENT: Negative Jaundice
Cardiology: S1 and S2
Pulmonary: Clear; Negative Wheezes or Rhonchi
GI: Soft and Normal Bowel Sounds
Musculoskeletal: No Clubbing, No Cyanosis and No Edema
Neurology: Non Focal
Psych: Calm
Lab Results:
Laboratory Data
WBC 0.9 10^3/uL (4.8-10.8) L* 03/20/24 04:50
Hgb 8.6 g/dL (12.0-16.0) L 03/20/24 04:50
Plt Count 34 10^3/uL (130-400) L D 03/20/24 04:50
eGFR > 60.00 03/20/24 04:50
[2024-03-20 15:15] VITALS: BP 116/72
[2024-03-20] MEDS: KLOR-CON 40 MEQ PO (18:24)
[2024-03-20 23:36] VITALS: BP 125/76
[2024-03-21] MEDS: STERILE WATER FOR INJECTION 10 ML IV ×2 (04:27→12:06)
[2024-03-21] MEDS: MAXIPIME 2000 MG IV ×2 (04:27→12:06)
[2024-03-21 07:06] LABS: % Basophils 1.1 % (0-2); % Immature Granulocytes 1.6 % (0-0.5); % Lymphocytes 20.9 % (20.5-51.1); % Monocytes 10.4 % (1.7-9.3); Absolute Eosinophils 0.1 10^3/uL (0-0.7); Absolute Lymphocytes 0.4 10^3/uL (1.2-3.4); Absolute Monocytes 0.2 10^3/uL (0.1-0.6); Absolute Neutrophils 1.1 10^3/uL (1.4-6.5); Hematocrit 24.4 % (37.0-47.0); Hemoglobin 8.7 g/dL (12.0-16.0); Mean Corp Hgb Conc. 35.7 g/dL (33.0-37.0); Mean Corpuscular Hgb 34.7 pg (27.0-31.0); Mean Corpuscular Volume 97.2 fL (81.0-99.0); Mean Platelet Volume 10.2 fL (7.4-10.4); Nucleated Red Blood Cells % 0 %; Platelet Count 37 10^3/uL (130-400); Red Blood Cell Count 2.51 10^6/uL (4.20-5.40); Red Cell Dist. Width 13.1 % (11.5-14.5)
--- NOTE | 2024-03-21 07:20 | W.PN.HOSP.TC ---
Addendum entered and electronically signed by Yevgeniy Mendoza MD 03/21/24 14:36:
Attending Addendum-
I saw and evaluated the patient. I reviewed the resident�s note and agree with findings and plan as documented in the resident�s note. feels great afepbril no new sxs. . last fever on 03/18 @1500. Very pleasant Full 12 point ROS reviewed and negative
except as documented Exam: Vitals reviewed in chart GEN-NAD heart RRR lungs clear abd soft LE no edema
# Febrile Neutropenic sepsis- unknown source in the setting of chemotherapy
-ANC now 1100
-Urinalysis negative
-Chest x-ray shows no acute disease of the chest, possible bilateral lower lobe pulmonary nodules which may be benign granulomas
-COVID, influenza negative
-blood cultures NGTD
- febrile 03/18 @ 1500
- DC IV fluids
- DC Vancomycin- no indication/MRSA risk MRSA swab neg
- dc home on po abx
# Pancytopenia secondary to chemotherapy
- Oncology input appreciated
- s/p neulasta last week
- on adriamycin
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
- appreciate gyne onc input
- adriamycin as OP
# Essential hypertension
-Continue losartan
-Hold hydrochlorothiazide
-Continue atenolol
# Osteoarthritis
# HLD
Full code
DVT prophylaxis�SCDs
Regular diet
Dispo DC home
Time spent coordinating care, review of plan of care with resident, review of records, DC planning, transition of care, med rec, consults, notes, labs, rads, d/w nursing amd onc� 35 mins
Original Note:
Today's Communication/Plan
-
- Anticipated discharge today.
- Oral antibiotics for 5 days.
Assessment / Plan
Assessment / Plan
Assessment
Fadumo Dent, age 69, came to the emergency on 03-18-24 after she had a 102 F fever at home. She has a history of uterine sarcoma lung metastasis. She underwent a hysterectomy in August 2023, and has been on adriamycin since January 2024. She called
oncologist office and was told to go to the emergency room. Her last dose of adriamycin was on 03-12-24, followed by pegfilgrastim on 03-13-24. Blood work in the emergency was notable for pancytopenia, including significant neutropenia (ANC 200) and
leukopenia (WBC 800). WBC, hemoglobin and platelets down-trended slightly on the next day. She received vancomycin and cefepime empirically with IV fluids, and was admitted for further management. Patient follows Dr. Martinez and Dr. Yu.
Impression
- Sepsis of unknown source/neutropenic fever
- Pancytopenia, secondary to chemotherapy
- Uterine sarcoma with pulmonary metastasis
- Hypokalemia
- Essential hypertension
- Hyperlipidemia
Plan
Sepsis of unknown source/neutropenic fever
- Met SIRS criteria.
- ANC of 200 on 03-18-24 and 03-19-24; improved to 300 on 03-20-24.
- UA, CXR, COVID, influenza, urine and blood cultures, review of system, and physical examination have been unremarkable.
- No recent ill exposures that she is aware of.
- Does have two parakeets at home around her.
- Blood and urine cultures show no growth.
- Vitals have remained stable since her arrival.
- Can discontinue vancomycin; patient stable with no clear source of an infection.
- Will keep cefepime for now.
- Discontinue IV fluids 03-21-24.
- Afebrile for 48+ hours.
- WBC and ANC today; okay to discharge per heme/onc.
Pancytopenia, secondary to chemotherapy
- WBCs have been 800 (03-18-24) -> 500 (03-19-24) -> 900 (03-20-24).
- Heme/onc following.
- Follow CBC.
- Okay to discharge when WBC >1000 per heme/onc.
Uterine sarcoma with pulmonary metastasis
- Last dose of adriamycin on 03-12-24.
Hypokalemia
- Mild; replete.
Essential hypertension
- Continue losartan and atenolol.
- Hold hydrochlorothiazide.
DVT prophylaxis
- SCD.
Code status
- Full.
Anticipated Discharge: Today
Subjective/Interval History
-
Date of Service: March 21, 2024
No changes to her health or vitals reported overnight. She feels fine and back to her usual self.
Objective Data
-
Labs:
Laboratory Results
03/21/24
05:04
WBC Pending
Hgb Pending
Hct Pending
Plt Count Pending
Sodium Pending
Potassium Pending
Chloride Pending
Carbon Dioxide Pending
BUN Pending
Creatinine Pending
Glucose Pending
Calcium Pending
Vital Signs:
Vital Signs
Temp Pulse Resp BP Pulse Ox
98.4 F 81 16 125/76 98
03/20/24 23:36 03/20/24 23:36 03/20/24 23:36 03/20/24 23:36 03/20/24 23:36
I&O
03/20/24 03/21/24 03/22/24
06:59 06:59 06:59
Intake Total 3440 / 3440 1440 / 1440
Balance 3440 / 3440 1440 / 1440
Review of Systems
-
History Source: Patient
Constitutional: Reports No Symptoms
EENT: Reports No Symptoms Reported
Respiratory: Reports No Symptoms
Cardiac: Reports No Symptoms
Abdomen/GI: Reports No Symptoms
Breast: Reports No Symptoms
Genitourinary: Reports No Symptoms
Musculoskeletal: Reports No Symptoms
Skin: Reports No Symptoms
Neuro: Reports No Symptoms
Endocrine: Reports No Symptoms
Hematologic / Lymphatic: Reports No Symptoms
Allergy / Immunology: Reports No Symptoms
Physical Exam
-
General: No Apparent Distress and Comfortable
HEENT: Normocephalic, Atraumatic, Moist Mucous Membranes and Anicteric
Respiratory: Clear to Auscultation and Non Labored Respirations
Cardiac: Regular Rhythm and S1/S2
GI: Soft, Nontender, Nondistended, Normal Bowel Sounds and No Hepatosplenomegaly
Genito-urinary: No Costovertebral Tender
Musculoskeletal: No Clubbing, No Cyanosis and No Edema
Skin: Warm, Dry and IV Access / Catheter Site
Neuro: Awake, Alert, Oriented and Nonfocal/Grossly Intact
Hematologic / Lymphatic: No Lymphadenopathy
Psych: Calm
[2024-03-21 07:23] LABS: White Blood Cell Count 1.8 10^3/uL (4.8-10.8)
--- NOTE | 2024-03-21 07:23 | W.DCSUMMARY ---
Addendum entered and electronically signed by Yevgeniy Mendoza MD 03/21/24 14:36:
Attending Addendum:
Read reviewed and agree. See same day progress note for additional details.
Edwin Mendoza MD
Original Note:
Documented by User: Enrrique Snow MD, Resident 03/21/24 14:18
Discharge Summary
Discharge Data
Date of Admission: 03/18/24
Date of Discharge: 03/21/24
-
Pending Results: No
Hospital Course
Primary discharge diagnosis
- Neutropenic fever syndrome
Secondary discharge diagnoses
- Sepsis of unknown source
- Pancytopenia, secondary to chemotherapy
- Uterine sarcoma with pulmonary metastasis
- Hypokalemia
- Essential hypertension
- Hyperlipidemia
Hospital course
Fadumo Dent, age 69, came to the emergency on 03-18-24 after noting a fever of 102 F at home. She had a dose of adriyamycin on 03-12-24, followed by pegfilgrastim on 03-13-24. Significant neutropenia and pancytopenia was noted. Presumed sepsis of
unknown source, and she was treated with IV hydration, cefepime and vancomycin. Her vitals remained stable throughout the hospital course, and she has not been febrile since her admission (48+ hours; day 4 today). Vancomycin was discontinued on day
2, and cefepime was continued.
On the day of discharge, her WBC and ANC counts had up-trended to 1800 and 1100 respectively. She was evaluated by heme/onc, and she was cleared for discharge from their standpoint. Outpatient follow-up with heme/onc prior to her next dose of
adriyamycin, and repeat CBC and BMP in 1 week post-discharge. Discharged on 5 days of amoxicillin-clavulanate and ciprofloxacin. Hand out given on precautions to prevent infections for patients receiving chemotherapy.
Discharge Plan
-
Patient Disposition: Home (Routine Discharge)
Discharge Diagnosis/Procedures: Neutropenic fever syndrome
Condition: Good
Diet: As tolerated
Activity: As tolerated
Driving Restrictions: As prior to admission
Blood Work: CBC and BMP in 1 week
Referrals:
Gaurav Macario MD [Family Provider] -
Prescriptions:
New
amoxicillin-pot clavulanate 875-125 mg tablet
1 tab PO Q12H 5 Days Qty: 10 0RF
ciprofloxacin HCl 500 mg tablet
500 mg PO BID 5 Days Qty: 10 0RF
Continued
atenolol 100 MG tablet
100 mg PO DAILY
diphenhydramine HCl [Benadryl] 25 mg Capsule
25 mg PO DAILY PRN (Reason: seasonal allergies)
hydrochlorothiazide 25 mg Tablet
25 mg PO DAILY
losartan 100 mg Tablet
100 mg PO DAILY
prochlorperazine maleate 10 mg tablet
10 mg PO Q6H PRN (Reason: nausea/vomiting)
lidocaine-prilocaine 2.5-2.5 % cream
1 applic topical DAILY PRN (Reason: prior to port access)
Chemo
1 dose IV Q3W
Neulasta
1 dose SC Q3W
Discharge Orders:
Discharge Patient (As Directed); Ordered 03/21/24
Ordered By: Enrrique Snow
Discharge Date and Time
Print Language: SAMI

Documented by User: Yevgeniy Mendoza MD 03/21/24 14:32
Discharge Summary
Discharge Data
Date of Admission: 03/18/24
Date of Discharge: 03/21/24
Discharge Plan
-
Patient Disposition: Home (Routine Discharge)
Discharge Diagnosis/Procedures: Neutropenic fever syndrome
Condition: Good
Diet: As tolerated
Activity: As tolerated
Driving Restrictions: As prior to admission
Blood Work: CBC and BMP in 1 week
Referrals:
Gaurav Macario MD [Family Provider] -
Prescriptions:
New
amoxicillin-pot clavulanate 875-125 mg tablet
1 tab PO Q12H 5 Days Qty: 10 0RF
ciprofloxacin HCl 500 mg tablet
500 mg PO BID 5 Days Qty: 10 0RF
Continued
atenolol 100 MG tablet
100 mg PO DAILY
diphenhydramine HCl [Benadryl] 25 mg Capsule
25 mg PO DAILY PRN (Reason: seasonal allergies)
hydrochlorothiazide 25 mg Tablet
25 mg PO DAILY
losartan 100 mg Tablet
100 mg PO DAILY
prochlorperazine maleate 10 mg tablet
10 mg PO Q6H PRN (Reason: nausea/vomiting)
lidocaine-prilocaine 2.5-2.5 % cream
1 applic topical DAILY PRN (Reason: prior to port access)
Chemo
1 dose IV Q3W
Neulasta
1 dose SC Q3W
Discharge Orders:
Discharge Patient (As Directed); Ordered 03/21/24
Ordered By: Enrrique Snow
Discharge Date and Time
Print Language: SAMI
[2024-03-21 07:30] LABS: Blood Urea Nitrogen 10 mg/dl (7-17); Calcium 8.3 mg/dl (8.4-10.2); Carbon Dioxide 25 mmol/L (22-30); Chloride 110 mmol/L (98-107); Estimated Creatinine Clearance 87 ml/min; Glucose 90 mg/dl (70-99); Magnesium 1.7 mg/dl (1.6-2.3); Potassium 3.5 mmol/L (3.5-5.1); Sodium 140 mmol/L (135-145); eGFR > 60.00
[2024-03-21 07:52] VITALS: BP 144/73
--- NOTE | 2024-03-21 08:27 | W.PN.ONC ---
Today's Communication / Plan
-
6/ WBC 1.8, Hgb 8.7, Hct 24.4, PLT 37
CBC with diff daily
Neutropenic precautions
Bleeding precautions
Transfuse to maintain Hgb >7.5, PLT >20 (or >50 w/ active bleeding)
Cefepime - Blood cultures negative
No role for additional G-CSF (last received 03/11)
Supportive care
Discharge planning
[place] office has been updated of patient's clinical status. CBC weekly.
Follow up is arranged with Dr. Martinez next week, 03/27 @ 15:00
Impression
Impression
Neutropenic fever (resolved)
Pancytopenia secondary to chemotherapy
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
Subjective/Objective
Subjective/Objective
patient OOB to the chair, she states she is feeling well and ready for discharge. denies fever or chills overnight.
Vital Signs:
Vital Signs
Temp Pulse Resp BP Pulse Ox
98.7 F 79 17 144/73 96
03/21/24 07:52 03/21/24 07:52 03/21/24 07:52 03/21/24 07:52 03/21/24 07:52
physical exam:
aaox3, pleasant
HRR, lungs clear on room air
Lab Results:
Laboratory Data
WBC 1.8 10^3/uL (4.8-10.8) L* 03/21/24 05:04
Hgb 8.7 g/dL (12.0-16.0) L 03/21/24 05:04
Plt Count 37 10^3/uL (130-400) L 03/21/24 05:04
eGFR > 60.00 03/21/24 05:04
--- NOTE | 2024-03-21 08:47 | CM ---
met with patient at bedside.patient lives with her /poa bandar in house with 4 yue,her bed and bath is on the second level,she amb with a walker.she is I with her adl.her pcpis dr lala bullard and she uses [facility] [place].patient has had a vn
in past but has never been ip rehab.
patient with a hx of uterine sarcoma with lung mets on chemo is adm with neutropenic fever.vanco is dc,on cefepime,ivf,follow cx,cbc.patient for possible dc home today with no needs, is supportive.
[2024-03-21] MEDS: COZAAR 100 MG PO (09:02)
[2024-03-21] MEDS: TENORMIN 100 MG PO (09:03)
[2024-03-21] MEDS: TYLENOL 650 MG PO (09:10)
[2024-03-21 13:37] VITALS: BP 129/78
--- NOTE | 2024-03-21 13:45 | CM ---
patient stable for discharge home with no needs.patient signed imm letter.family to transport home.
== END 2024-03-21 14:48 | disposition home or self-care (01) | DRG 871 ==
LOC: 2 NORTH 23:45
PROVIDERS: Clinical Nurse Specialist Family Health; Student in an Organized Health Care Education/Training Program; ADMITTING PHYSICIAN Hospitalist; ATTENDING PHYSICIAN Family Medicine; EMERGENCY PHYSICIAN Emergency Medicine; FAMILY PHYSICIAN Family Medicine; OTHER PHYSICIAN Internal Medicine Hematology & Oncology
DX: A41.9 Sepsis, unspecified organism (principal); D61.810 Antineoplastic chemotherapy induced pancytopenia; C78.00 Secondary malignant neoplasm of unspecified lung; D70.9 Neutropenia, unspecified; I10 Essential (primary) hypertension; N28.1 Cyst of kidney, acquired; E86.0 Dehydration; E87.6 Hypokalemia; C55 Malignant neoplasm of uterus, part unspecified; R50.81 Fever presenting with conditions classified elsewhere; T45.1X5A Adverse effect of antineoplastic and immunosuppressive drugs, initial encounter; M19.90 Unspecified osteoarthritis, unspecified site; E78.5 Hyperlipidemia, unspecified; K90.0 Celiac disease; Z96.642 Presence of left artificial hip joint; Z90.710 Acquired absence of both cervix and uterus; Z11.52 Encounter for screening for COVID-19
CPT/HCPCS: 71046; 80048; 80053; 81003; 83605; 83735; 85025; 87040; 87502; 87641; 87811; 93005

== ENCOUNTER → 2024-04-14 08:52 | Outpatient (REF) | payer OTHER, SELFPAY | LOC: RAD 08:52 | PROVIDERS: ATTENDING PHYSICIAN Obstetrics & Gynecology Gynecologic Oncology; FAMILY PHYSICIAN Family Medicine | DX: C54.1 Malignant neoplasm of endometrium (principal); C78.01 Secondary malignant neoplasm of right lung; C78.02 Secondary malignant neoplasm of left lung | CPT/HCPCS: 71260; 74177; Q9967 ==

== ENCOUNTER → 2024-04-21 10:40 | Outpatient (REF) | payer OTHER, SELFPAY ==
[2024-04-21 11:36] LABS: % Basophils 0.5 % (0-2); % Immature Granulocytes 0.2 % (0-0.5); % Lymphocytes 11.4 % (20.5-51.1); % Monocytes 14.8 % (1.7-9.3); % Neutrophils 72.1 % (42.2-75.2); Absolute Lymphocytes 0.5 10^3/uL (1.2-3.4); Absolute Monocytes 0.6 10^3/uL (0.1-0.6); Hematocrit 32.4 % (37.0-47.0); Hemoglobin 11.6 g/dL (12.0-16.0); Mean Corp Hgb Conc. 35.8 g/dL (33.0-37.0); Mean Corpuscular Hgb 34.7 pg (27.0-31.0); Mean Platelet Volume 8.7 fL (7.4-10.4); Nucleated Red Blood Cells % 0 %; Platelet Count 267 10^3/uL (130-400); Red Blood Cell Count 3.34 10^6/uL (4.20-5.40); Red Cell Dist. Width 16.7 % (11.5-14.5); White Blood Cell Count 4.1 10^3/uL (4.8-10.8)
[2024-04-21 11:51] LABS: ALT (SGPT) 30 U/L (0-35); AST (SGOT) 40 U/L (14-36); Albumin 4.2 g/dl (3.5-5.0); Alkaline Phosphatase 88 U/L (38-126); Blood Urea Nitrogen 15 mg/dl (7-17); Calcium 9.7 mg/dl (8.4-10.2); Carbon Dioxide 28 mmol/L (22-30); Chloride 100 mmol/L (98-107); Glucose 134 mg/dl (70-99); Potassium 3.4 mmol/L (3.5-5.1); Sodium 139 mmol/L (135-145); Total Bilirubin 0.6 mg/dl (0.2-1.3); Total Protein 6.5 g/dl (6.3-8.2); eGFR > 60.00
== END ==
LOC: REG 10:40
PROVIDERS: ATTENDING PHYSICIAN Internal Medicine Hematology & Oncology; FAMILY PHYSICIAN Family Medicine
DX: C54.1 Malignant neoplasm of endometrium (principal); C78.01 Secondary malignant neoplasm of right lung; C78.02 Secondary malignant neoplasm of left lung
CPT/HCPCS: 36415; 80053; 85025

== ENCOUNTER → 2024-05-15 07:54 | Outpatient (REF) | payer OTHER, SELFPAY | LOC: RCS 07:54 | PROVIDERS: ATTENDING PHYSICIAN Obstetrics & Gynecology Gynecologic Oncology; FAMILY PHYSICIAN Family Medicine; REFERRING PHYSICIAN Internal Medicine Cardiovascular Disease | DX: C54.1 Malignant neoplasm of endometrium (principal); C78.01 Secondary malignant neoplasm of right lung; C78.02 Secondary malignant neoplasm of left lung | CPT/HCPCS: 93306; 93356 ==

== ENCOUNTER 2024-05-22 17:35 | Emergency (ER) | payer OTHER, SELFPAY ==
[2024-05-22 18:09] LABS: % Basophils 0.4 % (0-2); % Eosinophils 0.4 % (0-6); % Immature Granulocytes 0.2 % (0-0.5); % Lymphocytes 6.7 % (20.5-51.1); % Neutrophils 82.3 % (42.2-75.2); Absolute Lymphocytes 0.3 10^3/uL (1.2-3.4); Absolute Monocytes 0.5 10^3/uL (0.1-0.6); Absolute Neutrophils 3.7 10^3/uL (1.4-6.5); Hematocrit 28.8 % (37.0-47.0); Hemoglobin 10.6 g/dL (12.0-16.0); Mean Corp Hgb Conc. 36.8 g/dL (33.0-37.0); Mean Corpuscular Hgb 37.3 pg (27.0-31.0); Mean Corpuscular Volume 101.4 fL (81.0-99.0); Mean Platelet Volume 8.9 fL (7.4-10.4); Nucleated Red Blood Cells % 0 %; Platelet Count 117 10^3/uL (130-400); Red Blood Cell Count 2.84 10^6/uL (4.20-5.40); Red Cell Dist. Width 17.3 % (11.5-14.5); White Blood Cell Count 4.5 10^3/uL (4.8-10.8)
[2024-05-22 18:12] LABS: Urine Albumin Negative (Neg - Trace); Urine Bilirubin Negative (Negative); Urine Character Clear (Clear); Urine Color Yellow; Urine Glucose Negative (Negative); Urine Ketone Negative (Negative); Urine Leukocyte 1+ (Negative); Urine Nitrite Negative (Negative); Urine Occult Blood Negative (Negative); Urine Specific Gravity 1.005 (<1.030); Urine Urobilinogen Negative (Neg - 1+)
[2024-05-22 18:23] LABS: Urine Red Blood Cell 0-2 /HPF (0-2); Urine White Cell 0-2 /HPF (0-5)
[2024-05-22 18:27] LABS: COVID-19 Antigen Negative (Negative)
[2024-05-22 18:35] LABS: ALT (SGPT) 23 U/L (0-35); AST (SGOT) 35 U/L (14-36); Albumin 3.9 g/dl (3.5-5.0); Alkaline Phosphatase 60 U/L (38-126); Blood Urea Nitrogen 21 mg/dl (7-17); Calcium 9.1 mg/dl (8.4-10.2); Carbon Dioxide 26 mmol/L (22-30); Chloride 97 mmol/L (98-107); Glucose 124 mg/dl (70-99); Potassium 3.5 mmol/L (3.5-5.1); Sodium 129 mmol/L (135-145); Total Protein 6.2 g/dl (6.3-8.2); eGFR > 60.00
--- NOTE | 2024-05-22 19:54 | ED.GENMED ---
History of Present Illness
General
Chief Complaint: Fever
Source: patient
Exam Limitations: none
Time Seen by Provider: 05/22/24 19:36
Nursing documentation reviewed up to this point in time: agreed with
History of Present Illness
History of Present Illness:
69-year-old female with history of HTN, uterine sarcoma with mets to the lung, states that yesterday, after her 6th of 15 radiation treatments to her chest, developed fever 101.0 and chills, took Tylenol last evening
Took Tylenol again today at noon and at 4 p.m. had fever 101.8. Called Oncology Dr. Yates who recommended she come here.
She denies CP, SOB, abdominal pain. Denies n/v/d/c.
Past History
Past History
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
ED Past Surgical History: Cholecystectomy, , Gynecological (Hysterectomy) and Orthopedic (left total hip replacement )
Social History
Tobacco: Non-smoker
Alcohol: Occasional
Personal:
Living: with family
Review of Systems
Review of Systems
Allergies reviewed?: Yes
All Other Systems: ROS reviewed and negative except as documented in HPI and ROS
Constitutional: Reports fever
Respiratory: Denies cough or trouble breathing
Cardiac: Denies chest pain
ABD/GI: Denies abdominal pain, nausea, vomiting or diarrhea
: Denies dysuria, frequency or difficulty voiding
Musculoskeletal: Reports no symptoms
Skin: Reports no symptoms
Neurological: Reports no symptoms
Phy Exam
Physical Exam
Physical Exam:
GENERAL: No acute distress. A&Ox3.
CONSTITUTIONAL: Afebrile.
EYES: PERRL, conjunctivae normal
ENMT: moist mucus membranes, Pharynx nl
RESPIRATORY: Regular respirations, nonlabored, lungs clear.
CARDIOVASCULAR: Regular rate and rhythm, no murmurs, no rubs.
GI: Soft, nontender, normal BS
MUSCULOSKELETAL: Moves with ease. Well perfused.
SKIN: Warm, dry, pink
PSYCH: Normal mood and affect. Well kept, interactive and appropriate
NEUROLOGIC: Awake, alert and oriented. No focal neurological deficits
Course
Orders/Labs/Results
Orders:
Orders
05/22/24 18:02
COVID-19 Antigen Urgent
Source: Nasal Swab
Complete Blood Count/With Diff Urgent
Comprehensive Metabolic Panel Urgent
Urinalysis Reflex To Culture Urgent
Date Specimen was Collected: 05/22/24
Time Specimen was Collected: 17:42
Urine Microscopic Reflex Cult Urgent
Urine Culture Urgent
MARLENE Source: U
Specimen Description:
Date Specimen was Collected: 05/22/24
Time Specimen was Collected: 17:42
05/22/24 20:12
CR Chest - 2 Views Urgent
Comment:
Reason For Exam: fever, uterine sarcoma w mets to lung,radiation tx
05/22/24 20:15
0.9% Sodium Chloride 500 ml [Nss] 500 ml IV BOLUS
05/22/24 22:18
LevoFLOXacin [Levaquin] 500 mg PO NOW STA
05/22/24 22:23
Blood Culture Routine
MARLENE Source: Blood/Venous
Specimen Description:
Blood Culture Urgent
MARLENE Source: Blood/Venous
Specimen Description:
Abnormal Lab Results
05/22/24
18:02
WBC 4.5 L 10^3/uL
(4.8-10.8)
RBC 2.84 L 10^6/uL
(4.20-5.40)
Hgb 10.6 L g/dL
(12.0-16.0)
Hct 28.8 L %
(37.0-47.0)
MCV 101.4 H fL
(81.0-99.0)
MCH 37.3 H pg
(27.0-31.0)
RDW 17.3 H %
(11.5-14.5)
Plt Count 117 L 10^3/uL
(130-400)
Absolute Lymphs (auto) 0.3 L 10^3/uL
(1.2-3.4)
Neutrophils % 82.3 H %
(42.2-75.2)
Lymphocytes % 6.7 L %
(20.5-51.1)
Monocytes % 10.0 H %
(1.7-9.3)
Sodium 129 L mmol/L
(135-145)
Chloride 97 L mmol/L
(98-107)
BUN 21 H mg/dl
(7-17)
Glucose 124 H mg/dl
(70-99)
Total Protein 6.2 L g/dl
(6.3-8.2)
Leukocyte Esterase Rfl 1+ A
(Negative)
05/22/24 18:02
05/22/24 18:02
Vital Signs
Initial and Last Documented VS:
Initial Vital Signs
Temp Pulse Resp Pulse Ox
100.5 F H 72 18 95
05/22/24 17:38 05/22/24 17:38 05/22/24 17:38 05/22/24 17:38
Last Documented Vital Signs
Temp Pulse Resp BP Pulse Ox
99.5 F 89 18 101/65 96
05/22/24 22:13 05/22/24 22:13 05/22/24 17:38 05/22/24 22:13 05/22/24 22:13
MDM/Problems Addressed
Differential Diagnosis Includes:
Neutropenic fever, PNA, UTI, Covid
MDM/Problems Addressed:
69-year-old female with history of HTN, uterine sarcoma with mets to the lung, states that yesterday, after her 6th of 15 radiation treatments to her chest, developed fever 101.0 and chills, took Tylenol last evening
Took Tylenol again today at noon and at 4 p.m. had fever 100.8. Called Oncology Dr. Yates who recommended she come here.
She denies CP, SOB, abdominal pain. Denies n/v/d/c.
8:00 p.m.
Covid neg
CBC: no clinically significant abnormality, ANC normal
CMP: Na 129
U/A neg
Chest x-ray with no sign of pneumonia,
Patient has no clear source of fever, she is stable, feels well otherwise
Plan: Discharge to home, fever control, BC pending
Consulted Dr. Reza who agrees with assessment and plan
10:[address] onc[address] Yates
He agrees, pt does not meet SIRS criteria, OK to send home
blood cultures pending
Requests empiric Levaquin 500 mg daily x 7 days
He will f/u with her tomorrow and keep a close watch on cultures
Chronic conditions affecting care: Immunosuppressed and Cancer
*Critical Care Note
Total Time (30-74mins, 75-104mins- exclusive of procedures): Not Applicable
Patient Management
Social determinants of health affecting care: Strong social support
ED Attending Note
-
Portions of this chart may have been created with voice recognition software.� Occasional wrong word or��sound alike� substitutions may have occurred due to the inherent limitations of voice recognition software.
Discharge Plan
Departure
Patient Disposition: Home (Routine Discharge)
Date of Disposition: 05/22/24
Time of Disposition: 22:07
Patient with high blood pressure during this ER visit?: No
Condition: Good
Discharge Problem:
Fever, Immunocompromised patient
Instructions: Fever, Adult (DC)
Prescriptions:
New
levofloxacin 500 mg tablet
500 mg PO DAILY 6 Days Qty: 6 0RF
No Action
atenolol 100 MG tablet
100 mg PO DAILY
diphenhydramine HCl [Benadryl] 25 mg Capsule
25 mg PO DAILY PRN (Reason: seasonal allergies)
hydrochlorothiazide 25 mg Tablet
25 mg PO DAILY
losartan 100 mg Tablet
100 mg PO DAILY
prochlorperazine maleate 10 mg tablet
10 mg PO Q6H PRN (Reason: nausea/vomiting)
lidocaine-prilocaine 2.5-2.5 % cream
1 applic topical DAILY PRN (Reason: prior to port access)
Chemo
1 dose IV Q3W
Neulasta
1 dose SC Q3W
amoxicillin-pot clavulanate 875-125 mg tablet
1 tab PO Q12H 5 Days Qty: 10 0RF
ciprofloxacin HCl 500 mg tablet
500 mg PO BID 5 Days Qty: 10 0RF
Referrals:
Ramiro Yates MD [Active] - Tomorrow
UNKNOWN - PT DOES,NOT KNOW [Unknown Provider] -
Activity Restrictions/Additional Instructions:
As we discussed, Dr. Kenny hand 1-2 be on an antibiotic, Levaquin daily for 1 week. I sent a prescription to your pharmacy. He says he will follow up with you tomorrow.
Interventions
Interventions:
*Risk Screen - Suicide Last Done: 05/22/24 17:38
*General Assessment Last Done: 05/22/24 17:38
*Neglect/Abuse Screening Last Done: 05/22/24 17:38
ED- Fall Risk Assessment Last Done: 05/22/24 22:33
*ED COVID-19 Vaccine History Last Done: 05/22/24 17:38
*Nursing Disposition Last Done: 05/22/24 22:33
ED- Neurological Assessment Last Done: 05/22/24 20:28
ED-Skin Assessment Last Done: 05/22/24 20:28
Discharge Date and Time
Discharge Date/Time: 05/22/24 22:36
Print Language: ARMENIAN
[2024-05-22] MEDS: NSS 500 IV (20:28)
[2024-05-22 22:13] VITALS: BP 101/65
[2024-05-22] MEDS: LEVAQUIN 500 MG PO (22:29)
== END 2024-05-22 22:36 | disposition home or self-care (01) ==
LOC: EMR 17:35
PROVIDERS: Student in an Organized Health Care Education/Training Program; EMERGENCY PHYSICIAN Emergency Medicine; FAMILY PHYSICIAN Family Medicine
DX: R50.9 Fever, unspecified (principal); D84.81 Immunodeficiency due to conditions classified elsewhere; I10 Essential (primary) hypertension; C55 Malignant neoplasm of uterus, part unspecified; C78.00 Secondary malignant neoplasm of unspecified lung; Z11.52 Encounter for screening for COVID-19
CPT/HCPCS: 99284; 96360; 71046; 80053; 81003; 81015; 85025; 87040; 87086; 87811

== ENCOUNTER → 2024-07-01 07:28 | Outpatient (REF) | payer OTHER, SELFPAY | LOC: RAD 07:28 | PROVIDERS: ATTENDING PHYSICIAN Obstetrics & Gynecology Gynecologic Oncology; FAMILY PHYSICIAN Family Medicine | DX: C54.1 Malignant neoplasm of endometrium (principal); C78.01 Secondary malignant neoplasm of right lung; C78.02 Secondary malignant neoplasm of left lung | CPT/HCPCS: 71260; 74177; Q9967 ==

== ENCOUNTER → 2024-07-10 09:26 | Outpatient (REF) | payer OTHER, SELFPAY | LOC: MRI 09:26 | PROVIDERS: ATTENDING PHYSICIAN Physician Assistant Surgical; FAMILY PHYSICIAN Family Medicine | DX: C54.1 Malignant neoplasm of endometrium (principal); C78.01 Secondary malignant neoplasm of right lung | CPT/HCPCS: 74183; A9575 ==

== ENCOUNTER → 2024-08-08 09:18 | Outpatient (REF) | payer OTHER, SELFPAY | LOC: RCS 09:18 | PROVIDERS: ATTENDING PHYSICIAN Internal Medicine Hematology & Oncology; FAMILY PHYSICIAN Family Medicine; REFERRING PHYSICIAN Internal Medicine Cardiovascular Disease | DX: C54.9 Malignant neoplasm of corpus uteri, unspecified (principal); C54.1 Malignant neoplasm of endometrium; C78.01 Secondary malignant neoplasm of right lung; C78.02 Secondary malignant neoplasm of left lung | CPT/HCPCS: 93306; 93356 ==

== ENCOUNTER 2024-09-10 15:49 | Emergency (ER) | payer OTHER, SELFPAY ==
[2024-09-10 15:51] VITALS: BP 167/101
--- NOTE | 2024-09-10 15:58 | EDRN ---
Per pt has already had bloodwork drawn 09/09/24 and states he is only concerned with her getting a urine test. Wishes to hold off on bloodwork until IV is accessed. Pt given urine cup and assisted to restroom.
[2024-09-10 16:24] LABS: Urine Albumin Trace (Neg - Trace); Urine Bilirubin Negative (Negative); Urine Character Clear (Clear); Urine Color Yellow; Urine Glucose Negative (Negative); Urine Ketone Trace (Negative); Urine Leukocyte 2+ (Negative); Urine Nitrite Negative (Negative); Urine Occult Blood Negative (Negative); Urine Specific Gravity 1.015 (<1.030); Urine Urobilinogen Negative (Neg - 1+)
[2024-09-10 16:33] LABS: Urine Red Blood Cell 0-2 /HPF (0-2)
[2024-09-10 16:34] LABS: Urine Bacteria Moderate (Negative)
[2024-09-10 17:52] VITALS: BP 150/88
--- NOTE | 2024-09-10 18:01 | ED.GENMED ---
History of Present Illness
General
Chief Complaint: Fever
Source: patient and spouse
Exam Limitations: none
Time Seen by Provider: 09/10/24 17:51
Nursing documentation reviewed up to this point in time: agreed with
History of Present Illness
History of Present Illness:
Patient to ED with complaint of fever x 4 days. Taking tylenol with temporary relief of fever. No other complaints. SHe is currently receiving chemo for lung CA. Last treatment was 4 weeks ago. Currently on hold due to fever and low platelets.
Brought to ED by spouse for eval.
Past History
Past History
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
ED Past Surgical History: Cholecystectomy, , Gynecological (Hysterectomy) and Orthopedic (left total hip replacement )
Social History
Tobacco: Non-smoker
Alcohol: Occasional
Personal:
Living: with family
Review of Systems
Review of Systems
Allergies reviewed?: Yes
All Other Systems: ROS reviewed and negative except as documented in HPI and ROS
Constitutional: Reports fever and fatigue
EENT: Reports no symptoms
Respiratory: Reports no symptoms
Cardiac: Reports no symptoms
ABD/GI: Reports no symptoms
: Reports no symptoms
Musculoskeletal: Reports no symptoms
Skin: Reports no symptoms
Neurological: Reports weakness
Psychiatric: Reports no symptoms
Phy Exam
General Physical Exam
General Presentation: well appearing and no apparent distress
General age: appears stated age
General Skin: warm and dry
General Habitus: normal
General Mental: appears intoxicated
General Hydration: appears well hydrated
Cardiovascular Exam
Cardiovascular Exam: regular rate/rhythm and no edema
Pulmonary Exam
Pulmonary Exam: lungs clear and no respiratory distress
Gastrointestinal Exam
Gastrointestinal Exam: normal bowel sounds and non tender
Neurological Exam
Neurological Exam: alert, oriented x3, CN II-XII intact, no motor deficits, no sensory deficits and speech normal
Musculoskeletal Exam
Musculoskeletal Exam: full ROM and neuro vasc intact
Skin Exam
Skin Exam: normal color, warm/dry and no rash
Psychiatric Exam
Psychiatric Exam: normal mood/affect
Sepsis
Sepsis Screening
Sepsis Assessment: Sepsis Ruled Out
Sepsis Screen
Sepsis Screen: Sepsis Ruled Out
Date: 09/11/24
Time: 23:02
Course
Orders/Labs/Results
Orders:
Orders
09/10/24 16:05
Urinalysis Reflex To Culture Urgent
Date Specimen was Collected: 09/10/24
Time Specimen was Collected: 15:56
Urine Microscopic Reflex Cult Urgent
Urine Culture Urgent
MARLENE Source: U
Specimen Description:
Date Specimen was Collected: 09/10/24
Time Specimen was Collected: 15:56
09/10/24 18:01
CR Chest - 2 Views Urgent
Comment:
Reason For Exam: fever, fatigue
09/10/24 18:08
COVID-19 Antigen Urgent
Source: Nasal Swab
Complete Blood Count/With Diff Urgent
Lactic Acid Urgent
Influenza A+B Rapid Molecular Urgent
MARLENE Source: Nasal Swab
Specimen Description:
09/10/24 18:25
Blood Culture Urgent
MARLENE Source: Blood/Venous
Specimen Description:
09/10/24 18:57
Comprehensive Metabolic Panel Urgent
Lyme Progressive Urgent
Comment: ADD ON
09/10/24 19:55
CT Head W/o Iv Contrast Urgent
Comment:
Reason For Exam: vision changes
09/10/24 20:09
Add On- LAB Urgent
Tests Added?: lyme progressive
09/10/24 20:26
Acetaminophen [Tylenol] 1,000 mg PO NOW STA
Abnormal Lab Results
09/10/24 09/10/24 09/10/24
16:05 18:08 18:57
WBC 4.7 L 10^3/uL
(4.8-10.8)
RBC 2.51 L 10^6/uL
(4.20-5.40)
Hgb 9.3 L g/dL
(12.0-16.0)
Hct 25.2 L %
(37.0-47.0)
MCV 100.4 H fL
(81.0-99.0)
MCH 37.1 H pg
(27.0-31.0)
RDW 15.7 H %
(11.5-14.5)
Plt Count 114 L 10^3/uL
(130-400)
Absolute Lymphs (auto) 0.4 L 10^3/uL
(1.2-3.4)
Absolute Monos (auto) 0.7 H 10^3/uL
(0.1-0.6)
Neutrophils % 75.7 H %
(42.2-75.2)
Lymphocytes % 9.3 L %
(20.5-51.1)
Monocytes % 14.4 H %
(1.7-9.3)
Sodium 133 L mmol/L
(135-145)
Glucose 115 H mg/dl
(70-99)
Calcium 8.3 L mg/dl
(8.4-10.2)
Total Protein 5.8 L g/dl
(6.3-8.2)
Urine Ketones Trace A
(Negative)
Leukocyte Esterase Rfl 2+ A
(Negative)
Urine Bacteria (Reflex) Moderate A
(Negative)
09/10/24 18:08
09/10/24 18:57
Vital Signs
Initial and Last Documented VS:
Initial Vital Signs
Temp Pulse Resp BP Pulse Ox
100.1 F 111 20 167/101 97
09/10/24 15:51 09/10/24 15:51 09/10/24 15:51 09/10/24 15:51 09/10/24 15:51
Last Documented Vital Signs
Temp Pulse Resp BP Pulse Ox
99.4 F 98 25 146/90 95
09/10/24 21:49 09/10/24 22:30 09/10/24 22:30 09/10/24 22:00 09/10/24 22:30
MDM/Problems Addressed
Differential Diagnosis Includes:
Patient to ED for eval of fever x 4 days. PMH of uterine sarcoma (2022) which was treated but was then diagnosed with metistatic disease to her lung. SHe receives [facility]. SHe missed this week due to fever. Fever
responding to tylenol, ibuprofen. No source isolated. Blood cultures are pending. now mentions that she has been experiencing headaches and over the past week she has had an obvious decline in her left peripheral vision. Sent for head
CT. Results: 'Right parietal-occipital parenchymal hemorrhage with surrounding edema. This could represent hemorrhagic infarct versus hemorrhagic metastasis. Small region of subcortical white matter diminished attenuation in the left frontal lobe.
Possibly related to white matter infarct versus vasogenic edema from occult metastatic lesion'. Case discussed with Dr. Leach. Patient will be transferred to [facility]. Accepting provider: Dr. Christensen. Discussed CT findings with
patient and spouse. SHe is agreeable to plan for transfer.
*Critical Care Note
Total Time (30-74mins, 75-104mins- exclusive of procedures): Not Applicable
ED Attending Note
-
Portions of this chart may have been created with voice recognition software.� Occasional wrong word or��sound alike� substitutions may have occurred due to the inherent limitations of voice recognition software.
Discharge Plan
Departure
Patient Disposition: Acute Care Hospital
Date of Disposition: 09/10/24
Time of Disposition: 21:12
Patient with high blood pressure during this ER visit?: Yes
Condition: Fair
Covid-19: Not Applicable
Discharge Problem:
Cerebral parenchymal hemorrhage
Prescriptions:
No Action
losartan 100 mg Tablet
100 mg PO DAILY
prochlorperazine maleate 10 mg tablet
10 mg PO Q6HPRN PRN (Reason: nausea/vomiting)
lidocaine-prilocaine 2.5-2.5 % cream
1 applic topical DAILYPRN PRN (Reason: prior to port access)
Yondelis 1 mg Recon Soln
0 mg IV Q3W Qty: 0
Neulasta
1 dose SC Q3W
furosemide 40 mg Tablet
40 mg PO DAILY
bisacodyl [Dulcolax (bisacodyl)] 5 mg Tablet,Delayed Release (Dr/Ec)
5 mg PO DAILYPRN PRN (Reason: constipation)
loratadine 10 mg Tablet
10 mg PO DAILY
Tylenol Extra Strength 500 mg Powder In Packet
1,000 mg PO Q6HPRN PRN (Reason: mild pain/fever)
ondansetron 8 mg Tablet,Disintegrating
8 mg PO Q8HPRN PRN (Reason: nausea)
Referrals:
Gaurav Macario MD [Family Provider] -
Hospital Transfer
Other hospital: [facility]
I certify that the patient requires transfer: Yes
Discussed case with accepting physician: Dr. Gautam. Accepting provider Dr. Christensen
Reason for transfer: specialties available
Interventions
Interventions:
*Risk Screen - Suicide Last Done: 09/10/24 15:51
*General Assessment Last Done: 09/10/24 18:30
*Neglect/Abuse Screening Last Done: 09/10/24 18:30
ED- Fall Risk Assessment Last Done: 09/10/24 18:30
*ED COVID-19 Vaccine History Last Done: 09/10/24 18:30
*Nursing Disposition Last Done: 09/10/24 22:53
ED- Neurological Assessment Last Done: 09/10/24 18:28
ED-Skin Assessment Last Done: 09/10/24 18:28
Discharge Date and Time
Discharge Date/Time: 09/10/24 22:55
Print Language: GUINEAN
[2024-09-10 18:33] LABS: % Basophils 0.2 % (0-2); % Eosinophils 0.2 % (0-6); % Immature Granulocytes 0.2 % (0-0.5); % Lymphocytes 9.3 % (20.5-51.1); % Monocytes 14.4 % (1.7-9.3); % Neutrophils 75.7 % (42.2-75.2); Absolute Lymphocytes 0.4 10^3/uL (1.2-3.4); Absolute Monocytes 0.7 10^3/uL (0.1-0.6); Absolute Neutrophils 3.6 10^3/uL (1.4-6.5); Hematocrit 25.2 % (37.0-47.0); Hemoglobin 9.3 g/dL (12.0-16.0); Mean Corp Hgb Conc. 36.9 g/dL (33.0-37.0); Mean Corpuscular Hgb 37.1 pg (27.0-31.0); Mean Corpuscular Volume 100.4 fL (81.0-99.0); Nucleated Red Blood Cells % 0 %; Platelet Count 114 10^3/uL (130-400); Red Blood Cell Count 2.51 10^6/uL (4.20-5.40); Red Cell Dist. Width 15.7 % (11.5-14.5); White Blood Cell Count 4.7 10^3/uL (4.8-10.8)
[2024-09-10 18:58] LABS: COVID-19 Antigen Negative (Negative)
[2024-09-10 19:00] VITALS: BP 141/75
[2024-09-10 19:21] LABS: Lactic Acid 1.4 mmol/L (0.7-2.0)
[2024-09-10 19:29] LABS: ALT (SGPT) 17 U/L (0-35); AST (SGOT) 26 U/L (14-36); Albumin 3.6 g/dl (3.5-5.0); Alkaline Phosphatase 63 U/L (38-126); Blood Urea Nitrogen 14 mg/dl (7-17); Calcium 8.3 mg/dl (8.4-10.2); Carbon Dioxide 22 mmol/L (22-30); Chloride 100 mmol/L (98-107); Glucose 115 mg/dl (70-99); Potassium 3.8 mmol/L (3.5-5.1); Sodium 133 mmol/L (135-145); Total Bilirubin 0.5 mg/dl (0.2-1.3); Total Protein 5.8 g/dl (6.3-8.2); eGFR > 60.00
[2024-09-10] MEDS: TYLENOL 1000 MG PO (20:30)
[2024-09-10 21:02] VITALS: BP 137/74
[2024-09-10 22:00] VITALS: BP 146/90
[2024-09-12 10:49] LABS: Lyme Antibody Screen, EIA Negative (Negative)
== END 2024-09-10 22:55 | disposition short-term general hospital (02) ==
LOC: EMR 15:49
PROVIDERS: Emergency Medicine; Nurse Practitioner; EMERGENCY PHYSICIAN Emergency Medicine; FAMILY PHYSICIAN Family Medicine
DX: I61.8 Other nontraumatic intracerebral hemorrhage (principal); C55 Malignant neoplasm of uterus, part unspecified; C78.00 Secondary malignant neoplasm of unspecified lung; I10 Essential (primary) hypertension; Z90.49 Acquired absence of other specified parts of digestive tract; Z90.710 Acquired absence of both cervix and uterus; Z79.60 Long term (current) use of unspecified immunomodulators and immunosuppressants
CPT/HCPCS: 99285; 70450; 71046; 80053; 81003; 81015; 83605; 85025; 86618; 87040; 87086; 87502; 87811

== ENCOUNTER 2024-10-14 08:23 | Inpatient (IN) | payer OTHER, SELFPAY ==
[2024-10-13] VITALS (12 sets, daily range): BP systolic 76–142; BP diastolic 48–91; BMI 29.9; BMI 29.1
[2024-10-13] MEDS: MORPHINE SULFATE 4 MG IV (11:59)
--- NOTE | 2024-10-13 12:28 | ED.GENMED ---
History of Present Illness
General
Chief Complaint: Cough
Source: patient, spouse and physician
Time Seen by Provider: 10/13/24 11:40
History of Present Illness
History of Present Illness:
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
week ago, per family was unable to tolerate the full procedure and only received about 25% until the procedure had to be aborted, presenting to the ER at request of her [employer] oncologist Dr. Yates for further evaluation and treatment of progressive
right-sided weakness, cough and reported decompensation that has been worsening over the last 24 to 48 hours. Most of the history was obtained from the patient's as patient is currently only answering yes and no questions some of which are
inappropriately being answered. reports that patient's mental status has had an acute decline as well although at times patient does seem to be fully awake and alert and knowing what is currently ongoing in terms of her diagnosis. Patient
was scheduled to go back to the [facility] today to retry the gamma knife procedure however due to worsening right-sided weakness discussed with Dr. Yates and they ultimately decided that coming to the hospital today was in
the patient's best interest as far as her treatment and disposition planning goes with plans for inpatient hospice being the most likely course of action and wish per family.
Past History
Past History
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
ED Past Surgical History: Brain, Cholecystectomy, , Gynecological (Hysterectomy) and Orthopedic (left total hip replacement )
Social History
Tobacco: Non-smoker
Alcohol: Occasional
Drug: None
Personal:
Living: with family
Review of Systems
Review of Systems
All Other Systems: ROS reviewed and negative except as documented in HPI and ROS
Phy Exam
Physical Exam
Physical Exam:
GENERAL: Alert , in no apparent distress
HEAD: NCAT
EYE: clear conjunctiva
NECK: Supple
ENT: o/p clr, mmm.
CARDIAC: Tachycardic rate and rhythm 126 bpm
LUNGS: Clear breath sounds bilaterally, no acute respiratory distress, no wheezes/rales/rhonchi
NEUROLOGICAL: Alert and oriented, RUE and RLE weakness compared to left side
SKIN: Warm and dry, skin intact.
MUSCULOSKELETAL: No edema, well perfused.
PSYCH: Normal and appropriate interaction.
Scores
Heart Failure Risk
Heart Failure Risk Score: Not Applicable
Heart Score for Chest Pain Patients
STEMI patient?: Not applicable
Withdrawal Assessment of Alcohol
Withdrawal Assessment Completed?: Not applicable
Course
Orders/Labs/Results
Orders:
Orders
10/13/24 11:54
CT Head W/o Iv Contrast Urgent
Comment:
Reason For Exam: known brain mets, RUE/RLE weakness
CT Pe/abd/pel W Urgent
Reason For Exam: cough, tachy, order combined
Morphine Sulfate 4 mg IV NOW STA
10/13/24 11:58
Complete Blood Count/With Diff Urgent
Comprehensive Metabolic Panel Urgent
10/13/24 12:20
Case Management Consult ONCE
Case Management Consult: Hospice
Hospice: Evaluation and treat
Comment: Please only talk to about care
10/13/24 14:17
Guaifenesin/Dextromethorphan [Robitussin Dm] 10 ml PO NOW STA
10/13/24 14:41
Admit/Transfer Patient As Directed
Co-Sign Provider:
Level of Care: Observation services
Assign to:: Medical/Surgical
Physician / Group: jaxson
Diagnosis: brain metastases
Code Status As Directed
Resuscitation Status: Do not resuscitate
Reached after discussion with pt or family/Healthcare POA: Yes
DNR Bracelet Application ONCE
PRN Pain Medication Management As Directed
May give lesser potent ordered pain med per pt: Yes
preference::
Protocol:: Medication orders for pain may be administered in a
manner that supports deferring to patient preference
when the pt is:
- Requesting an ordered lesser potent pain medication.
Least to most potent pain medications are defined
as: acetaminophen < NSAID < tramadol < opioids
(morphine, oxycodone, hydromorphone).
- Requesting a lesser dose of the same medication IF
ORDERED.
- Requesting a less intrusive route of administration
if both routes are prescribed by the provider (PO <
IV).
10/13/24 16:18
acetaminophen [Tylenol Extra Strength] 1,000 mg PO Q6HPRN PRN
Abnormal Lab Results
10/13/24
11:58
RBC 2.78 L 10^6/uL
(4.20-5.40)
Hgb 9.9 L g/dL
(12.0-16.0)
Hct 27.9 L %
(37.0-47.0)
MCV 100.4 H fL
(81.0-99.0)
MCH 35.6 H pg
(27.0-31.0)
RDW 17.0 H %
(11.5-14.5)
Plt Count 69 L 10^3/uL
(130-400)
Absolute Neuts (auto) 6.9 H 10^3/uL
(1.4-6.5)
Absolute Lymphs (auto) 0.3 L 10^3/uL
(1.2-3.4)
Neutrophils % 90.7 H %
(42.2-75.2)
Lymphocytes % 4.2 L %
(20.5-51.1)
Potassium 3.4 L mmol/L
(3.5-5.1)
BUN 26 H mg/dl
(7-17)
Glucose 102 H mg/dl
(70-99)
ALT 54 H U/L
(0-35)
Total Protein 5.6 L g/dl
(6.3-8.2)
10/13/24 11:58
10/13/24 11:58
Vital Signs
Initial and Last Documented VS:
Initial Vital Signs
BP
123/87
10/13/24 11:26
Last Documented Vital Signs
Temp Pulse Resp BP Pulse Ox
102.2 F H 126 24 142/88 93
10/13/24 16:16 10/13/24 15:45 10/13/24 15:45 10/13/24 14:00 10/13/24 15:45
MDM/Problems Addressed
Differential Diagnosis Includes:
worsening metastatic disease, ICH, PE, electrolyte imbalance, anemia
MDM/Problems Addressed:
69-year-old female with what appears to be close to end-stage metastatic uterine cancer to the lungs and brain presenting to the ER for further evaluation and treatment of the right lower extremity weakness, cough at the request of her oncologist.
Oncology is requesting CT of the head chest abdomen and pelvis to further evaluate. There are ongoing talks about placing the patient in hospice. Will order case management consult for this. Patient is endorsing some lower back pain which has
been present since she had an accidental fall while at rehab a few weeks ago. X-ray imaging was done at that time but did not show any abnormalities. Will discuss with patient's oncology team. Disposition pending
Chronic conditions affecting care: Cancer
Acute Exacerbation and/or Progression of Chronic Illness: Cancer
*Radiology
Radiology exam reviewed: radiology read reviewed
*Pulse Oximetry
Patient hypoxic: no
*Licensing Engineer Interpretation
Rate: tachycardiac
Rhythm: sinus
*Critical Care Note
Total Time (30-74mins, 75-104mins- exclusive of procedures): Not Applicable
Data Reviewed
Review of Other/Old Records Reveals: Labs and Records
Patient Management
Discussion with other providers: Hospitalist and Health Services Administrator
Escalation/DeEscalation of care consider admission/obs:
Patient CT findings noted for extensive metastatic disease. Patient remains DNR and family wishes to pursue hospice care at this time. Unfortunately family is unable to care for the patient at home and they are requesting inpatient hospice. Case
management is aware of this but due to time constraints would be unable to get this performed today and recommend admission. Hospitalist team accepts for continued evaluation and treatment. I also updated patient's [employer] oncologist who is aware of
these new findings and is requesting medical oncology be consulted as well.
ED Attending Note
-
Portions of this chart may have been created with voice recognition software.� Occasional wrong word or��sound alike� substitutions may have occurred due to the inherent limitations of voice recognition software.
Discharge Plan
Departure
Patient Disposition: Admit
Date of Disposition: 10/13/24
Time of Disposition: 14:16
Presentation/result/management discussed w/ accepting MD/DO: Hospitalist
Discharge Problem:
Metastatic cancer, Brain neoplasm malignant, Malignant lung neoplasm
Interventions
Interventions:
*Risk Screen - Suicide Last Done: 10/13/24 11:30
*General Assessment Last Done: 10/13/24 11:30
*Neglect/Abuse Screening Last Done: 10/13/24 11:30
ED- Fall Risk Assessment Last Done: 10/13/24 11:30
*ED COVID-19 Vaccine History Last Done: 10/13/24 11:30
ED- Pulmonary Assessment Last Done: 10/13/24 11:30
[2024-10-13 12:34] LABS: % Eosinophils 0.1 % (0-6); % Immature Granulocytes 0.4 % (0-0.5); % Lymphocytes 4.2 % (20.5-51.1); % Monocytes 4.6 % (1.7-9.3); % Neutrophils 90.7 % (42.2-75.2); Absolute Lymphocytes 0.3 10^3/uL (1.2-3.4); Absolute Monocytes 0.4 10^3/uL (0.1-0.6); Absolute Neutrophils 6.9 10^3/uL (1.4-6.5); Hematocrit 27.9 % (37.0-47.0); Hemoglobin 9.9 g/dL (12.0-16.0); Mean Corp Hgb Conc. 35.5 g/dL (33.0-37.0); Mean Corpuscular Hgb 35.6 pg (27.0-31.0); Mean Corpuscular Volume 100.4 fL (81.0-99.0); Nucleated Red Blood Cells % 0 %; Red Blood Cell Count 2.78 10^6/uL (4.20-5.40); White Blood Cell Count 7.6 10^3/uL (4.8-10.8)
[2024-10-13 12:39] LABS: ALT (SGPT) 54 U/L (0-35); AST (SGOT) 31 U/L (14-36); Albumin 3.5 g/dl (3.5-5.0); Alkaline Phosphatase 101 U/L (38-126); Blood Urea Nitrogen 26 mg/dl (7-17); Calcium 8.8 mg/dl (8.4-10.2); Carbon Dioxide 24 mmol/L (22-30); Chloride 102 mmol/L (98-107); Estimated Creatinine Clearance 69 ml/min; Glucose 102 mg/dl (70-99); Potassium 3.4 mmol/L (3.5-5.1); Sodium 135 mmol/L (135-145); Total Protein 5.6 g/dl (6.3-8.2); eGFR > 60.00
[2024-10-13 13:05] LABS: Mean Platelet Volume 9.3 fL (7.4-10.4)
[2024-10-13 13:06] LABS: Platelet Count 69 10^3/uL (130-400)
--- NOTE | 2024-10-13 13:23 | CM ---
Addendum entered by Sheila Navarrete 10/13/24 14:48:
Patient lives with . They are both retired service center coordinator. Patient with increased weakness. shared that there is a hospital bed in living room for patient. They were supposed to go home with [facility]. Patient with increased
weakness.
Addendum entered by Sheila Navarrete 10/13/24 14:32:
Spoke with , daughter and patient's sister about patient needing to meet criteria for GIP status. Also shared that patient could be admitted under comfort care and be assessed by [facility]. and family agreeable to patient
being admitted under comfort care. Enma with Hospice made aware.
She requested patient be placed on [address]. Omaira insulation cupola charger made aware.
Patient's given a list of inpatient hospice facilities. He stated that he is aware his may pass at the hospital, and he will take things day by day.
Hospice referral placed via [facility].
Original Note:
CM consult placed. Patient with uterine cancer that has spread to her lungs and brain. CM sat down with patient's as he expressed his wishes for his . He and the rest of patient's family are on board with patient going on hospice.
Patient's would like patient to go to a inpatient hospice facility.
CM reached out to [facility] institutional aide nurse, Enma. Enma explained that patient would need to meet certain criteria in order to go to an inpatient hospice facilty. She also shared room and board are not usually covered. Patient would need to be on
IV medications and have an imminent .
Patient's was hoping to get patient into [facility] program. Enma shared that that program is closed and so is the one at [facility]. She shared there is one in the [facility] and one up [place].
Enma shared that patient could be admitted under comfort care and assessed by hospice daily to see if she'd meet GIP criteria.
--- NOTE | 2024-10-13 14:43 | HPS.HSE ---
Family Physician
-
Family Physician: Gaurav Macario
Chief Complaint
-
weakness
History of Present Illness
69-year-old female past medical history of metastatic uterine sarcoma with metastases to lung/brain status post brain tumor surgery, still with multiple tumors in the left side of brain and underwent gamma knife radiation 1 week ago, hypertension,
celiac disease, kidney cyst, presenting to the ER at request of her [employer] oncologist Dr. Yates for further evaluation of progressive right-sided weakness, cough and decompensation within the past 1 to 2 days. History obtained from patient's
as patient only answering yes or no questions summer which answered inappropriately.
As per her mental status has acutely declined although at times she does appear to be fully awake and alert and knowing what is going on.
A week ago she underwent gamma knife radiation but was unable to tolerate the full procedure because she could not stay still and only received about 25% until the procedure was aborted.
Dr. Yates decided coming to the hospital is the best course of action and family is wishing for inpatient hospice.
Patient has been having some lower back pain since she had accidental fall while at rehab a few weeks ago. X-ray did not show any abnormalities.
Medical History
Past Medical History
Past Medical History: Reports Other (metastatic uterine sarcoma with metastases to lung/brain status post brain tumor surgery, still with multiple tumors in the left side of brain and underwent gamma knife radiation 1 week ago, hypertension, celiac
disease, kidney cyst,)
Past Surgical History: Reports Other (Brain, Cholecystectomy, , Gynecological (Hysterectomy) and Orthopedic (left total hip replacement ))
Social History
Tobacco: Non-smoker
Alcohol: None
Drug: None
Family History
Family History: Not pertinent
Allergies / Home Medications
Allergies reflects when Allergies were last updated in [facility].
Home Medications with original date entered in [facility]
Allergy/Medication List:
Allergies
Allergy/AdvReac Type Severity Reaction Status Date / Time
gluten Allergy Unknown Verified 09/10/24 15:51
pollen extracts Allergy SEASONAL-SN Verified 09/10/24 15:51
EEZING
Home Medications
lidocaine-prilocaine 2.5 %-2.5 % topical cream 1 applic topical DAILYPRN PRN prior to port access 03/18/24
acetaminophen 500 mg oral powder packet (Tylenol Extra Strength) 1,000 mg PO Q6HPRN PRN mild pain/fever 09/10/24
dexamethasone 2 mg tablet 8 mg PO DAILY 10/13/24
dextromethorphan-guaifenesin 10 mg-100 mg/5 mL oral syrup 10 ml PO Q4HPRN PRN mild pain 10/13/24
levetiracetam 500 mg tablet (Keppra) 500 mg PO BID 10/13/24
lorazepam 0.5 mg tablet 0.5 mg PO BIDPRN PRN anxiety 10/13/24
sulfamethoxazole 800 mg-trimethoprim 160 mg tablet (Bactrim DS) 1 tab PO MOWEFR 10/13/24
trazodone 50 mg tablet 100 mg PO HS 10/13/24
Review of Systems
-
History Source: Patient
A 12 point ROS was completed and negative except as noted: Yes
Constitutional: Reports No Symptoms
EENT: Reports No Symptoms
Respiratory: Reports No Symptoms
Cardiac: Reports No Symptoms
Abdomen/GI: Reports No Symptoms
: Reports No Symptoms
Musculoskeletal: Reports No Symptoms
Skin: Reports No Symptoms
Neurological: Reports No Symptoms
Endocrine: Reports No Symptoms
Hematologic/Lymphatic: Reports No Symptoms
Psych: Reports No Symptoms
Physical Exam
Vital Signs
Vital Signs
Temp Pulse Resp BP Pulse Ox
99.9 F 147 18 138/91 95
10/13/24 11:30 10/13/24 13:18 10/13/24 13:18 10/13/24 13:18 10/13/24 13:18
Physical Exam
General: Well Developed, Well Nourished and No Apparent Distress
HEENT: NormoCephalic, Moist mucous membranes and Atraumatic
Respiratory: Clear
Cardiac: S1/S2 and Regular Rhythm; No Murmur or Rub
GI: Soft, Non Tender, Non Distended and Normal Bowel Sounds; No Organomegaly
Rectal: Deferred by Provider
Musculoskeletal: No Clubbing, No Cyanosis and No Edema
Skin: No Rash
Neuro: Nonfocal/grossly intact
Laboratory Results
-
10/13/24 11:58
10/13/24 11:58
Laboratory Results
Total Bilirubin 1.0 mg/dl (0.2-1.3) 10/13/24 11:58
AST 31 U/L (14-36) 10/13/24 11:58
ALT 54 U/L (0-35) H 10/13/24 11:58
Alkaline Phosphatase 101 U/L (38-126) 10/13/24 11:58
Data Reviewed
-
Lab Data: Labs Reviewed by me
Old Records: Reviewed
Impression/Plan
-
IMPRESSION:
PLAN:
# Right lower extremity weakness secondary to worsening hemorrhagic metastases of the right brain, new left frontal metastases
# Metastatic uterine sarcoma with metastases to lung/brain
-Oncology consulted requesting CT head, chest abdomen pelvis
-CT head shows small focus of slight increased attenuation peripherally in the right posterior parietal occipital region with surrounding hypodensity suspicious for residual/recurrent hemorrhagic metastasis, 2 new foci of altered attenuation left
frontal lobe likely metastatic lesions
-CT abdomen pelvis shows marked progression of widespread lung parenchymal metastatic disease
-Family interested in inpatient hospice
-Case management consulted for hospice
-Continue dexamethasone, Keppra
-Continue prophylactic Bactrim
-Morphine for pain
Metastatic uterine sarcoma with metastases to lung/brain status post right parietal craniotomy
DNR/DNI
DVT prophylaxis�none
Regular diet
[2024-10-13] MEDS: ROBITUSSIN DM 10 ML PO (14:47)
--- NOTE | 2024-10-13 16:00 | HOSPNOTE ---
Hospice referral received. Reviewed with Sheila and reviewed that at this time patient does not meet GIP criteria at this time. Recommended that patient be placed on comfort measures and hospice will follow and assess daily for GIP criteria. Family
is in agreement with this plan. Requested patient be placed on [address] when bed is available as well. Hospice will continue to follow,more information to follow.
[2024-10-13] MEDS: OFIRMEV 100 IV ×2 (16:28→21:19)
[2024-10-13] MEDS: MORPHINE SULFATE 2 MG IV ×2 (16:50→22:57)
--- NOTE | 2024-10-13 17:16 | EDRN ---
per he is unsure why pt takes Bactrim. pt agrees with this rns concern for pt taking po @ this time. per ok to skip this dose.
--- NOTE | 2024-10-13 19:15 | W.CON.GYNONC ---
Chief Complaint
-
Altered mental state
History of Present Illness
Fadumo is a 69-year-old female with metastatic uterine sarcoma with pulmonary metastasis and was diagnosed with 2 brain mets last month, she underwent craniotomy for larger lesion and recovered well. she was iin process of egtting [facility] at [facility]
but had a lot of difficulty laying on her back and only tolerated portion of treatment last week. Her noticed progressive right sided weakness cough and decompensation over the last 2 days and contacted me earlier today. I recommended
coming to the emergency room for further evaluation. At the time of my visit the patient is unable to speak but does moan periodically. She is surrounded by her daughter sister and [id number].
Past-Medical/Surgical History
Past Medical History
Hypertension
Hyperlipidemia
Osteoarthritis
Celiac disease
Surgical History
Appendectomy
section
Laparoscopic cholecystectomy
WELLINGTON/BSO
Social History
Patient denies ever using tobacco.
Current alcohol user.
Denies any illicit drug use.
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
Marital Status: Patient is
Medical History
Allergies
Allergies reflect when allergies were last updated in [employer].
gluten Allergy (Verified 09/10/24 15:51)
Unknown
pollen extracts Allergy (Verified 09/10/24 15:51)
SEASONAL-SNEEZING
Physical Exam
Vital Signs / I&O
Vitals
Temp Pulse Resp BP Pulse Ox
102.2 F H 156 24 86/63 93
10/13/24 16:16 10/13/24 18:00 10/13/24 18:00 10/13/24 18:00 10/13/24 18:00
Physical Exam
General: No Apparent Distress
HEENT: Normocephalic
Cardiac: Tachycardia
Breast: Deferred by me
GI: Soft and Non Tender
Musculoskeletal: No Clubbing and No Cyanosis
Skin: Warm
Neuro: Sedated
Hematologic/Lymphatic: No Lymphadenopathy
Psych: Calm
Results
-
10/13/24 11:58
10/13/24 11:58
\\
[facility]
[address] [place] [address] [place] [address]
[phone]
Patient Name: FADUMO FARRIS
: 1955
Unit Number: [id number]
Age/Sex: 69/F
Patient
Location: EMR
Order Provider: Kimo Fermin PA-C
Exam Service Date: 10/13/24

Diagnostic Imaging Report
SignedOrder #:[id number]
Exams: CT Head W/o Iv Contrast
CPT: 75792
PROCEDURE: CT Head W/o Iv Contrast
CLINICAL INDICATION: Ovarian carcinoma with known brain mets, RUE/RLE weakness
TECHNIQUE: A CT examination of the head was performed without intravenous contrast. Coronal reformatted images were obtained. Automatic exposure control radiation dose reduction technology was utilized.
COMPARISON: September 10, 2024
FINDINGS:
Unenhanced CT imaging of the head reveals right parietal craniotomy in the interval since recent prior study. Small ill-defined focus of slight increased attenuation suggesting parenchymal hemorrhage is seen amongst some predominantly hypodensity
lateral which presumably represents edema/postsurgical changes in the right posterior parietal-occipital region. There is some possible thickening of the adjacent dura suggested on image 14 series 201.
There is an approximate 1.8 cm focus of slight increase attenuation at least a small portion of which may represent hemorrhage posteriorly in the left frontal lobe, images 18 and an additional area of altered attenuation with surrounding hypodensity
the high left frontal lobe =measuring approximately 2.6 cm centrally images 21 series 201.
There is no midline shift. The ventricles, cisterns and sulci are slightly prominent, stable. The brainstem and posterior fossa structures demonstrate no significant focal abnormality.
IMPRESSION:
Right parietal craniotomy in the interval since recent prior CT.
Small focus of slight increase attenuation peripherally in the right posterior parietal-occipital region with surrounding hypodensity at least suspicious for residual/recurrent hemorrhagic metastasis.
Two new foci of altered attenuation in the left frontal lobe, as detailed above with surrounding hypodensity which could also represent metastatic lesions, more anterior of which likely has a small hemorrhagic component.
MRI recommended for more complete evaluation.
Electronically signed by Ramiro Barillas MD, 10/13/2024 1:27 PM
[employer]imetrics Dose Report: Up-to-date CT equipment and radiation dose reduction techniques were employed. CTDIvol: 47.8 mGy. DLP: 964 mGy-cm.
Dictated By: Ramiro Barillas MD
Dictated Date & Time: 10/13/24 1317
Signed/Co-Signer By: Ramiro Barillas MD /
Signed/Co-Signer Date & Time: 10/13/24 1327 /
Exams: CT Pe/abd/pel W
PROCEDURE: CT Pe/abd/pel W
CLINICAL INDICATION: cough, tachy, history of ovarian carcinoma.
TECHNIQUE: Axial images through the chest following intravenous nonionic contrast administration with coronal and sagittal reformations. Three-dimensional reformations obtained at the computer work station. Then, axial images through the abdomen and
pelvis following intravenous nonionic contrast administration with coronal and sagittal reformations. Automated dose reduction technique utilized.
COMPARISON: CT chest, abdomen and pelvis July 01, 2024.
FINDINGS:
CTA chest: The central pulmonary arteries are well-opacified and demonstrate no filling defects to suggest pulmonary embolism, evaluation of some right lower lobe pulmonary arterial branches limited due to masses. Bilateral pulmonary masses
suspicious for malignancy/metastatic disease are seen which have increased in size including the right upper lobe measuring 1.8 cm compared to 1.2 cm, several small masses slightly increased in size in the right middle lobe and lobulated lesion in
the left lower lobe measuring 3.8 cm as compared to 2.4 cm on prior study. There is a large lobulated likely conglomerate right lower lobe mass measuring at least 9.5 cm which encompasses several smaller masses seen on prior study, increased in
size/volume. There is no pneumothorax, significant pleural effusion or significant pericardial effusion. There is no significant hilar or axillary lymphadenopathy. There are a few scattered small mediastinal lymph nodes. There is no focal suspicious
osteolytic lesion.
Abdomen: Diffuse decrease attenuation of the liver is again seen. The gallbladder is surgically absent. There are no findings to suggest biliary tract dilatation. Predominantly hypodense splenic lesion is stable most likely a benign cystic lesion.
Numerous bilateral renal cysts are seen, largest in the left kidney again demonstrating some peripheral calcification.. There is an additional approximate 1.4 cm lateral solid left renal lesion, image 41 series 501 again seen not compatible with a
cyst, likely solid. Renal excretion is symmetric. Some additional subcentimeter low-attenuation renal lesions are seen to small to characterize. There is no retroperitoneal lymphadenopathy. The abdominal aorta is normal in caliber with calcific
atherosclerotic changes. There is no focal abnormality of the pancreas or adrenal glands. Evaluation of the intestinal tract is markedly limited without oral contrast, without intestinal obstruction or free air.
Pelvis: Evaluation is again markedly limited of the soft tissues of the true pelvis due to prominent beam hardening artifact from the patient's left hip arthroplasty including limited evaluation of the urinary bladder. There is no gross significant
lymphadenopathy in this patient status post total hysterectomy.
Osseous: Stable partial L3 vertebral compression fracture. Slight loss of height and slight increased attenuation of the L1 vertebral body new in the interval since prior study.
IMPRESSION:
Marked progression of widespread lung parenchymal metastatic disease in comparison to prior chest CT July 01, 2024, as detailed above.
No findings to suggest central pulmonary embolism, evaluation of the right lower lobe pulmonary arterial branches limited by right lower lobe lung masses.
Diffuse fatty liver again seen.
Bilateral renal cysts as well as subcentimeter low-attenuation renal lesions too small to characterize. Approximate 1.4 cm lateral left renal soft tissue lesion again seen, malignancy the diagnosis of exclusion.
Stable splenic cystic lesion, most likely benign.
Soft tissues of the true pelvis again significantly obscured by beam hardening artifact from left hip arthroplasty.
Prior cholecystectomy.
Stable partial L3 vertebral compression fracture.
Slight loss of height and slight increase attenuation of the L1 vertebral body new in the interval since prior study, findings could represent metastatic involvement.
Electronically signed by Ramiro Barillas MD, 10/13/2024 1:46 PM
Radimetrics Dose Report: Up-to-date CT equipment and radiation dose reduction techniques were employed. CTDIvol: 2.4 - 14.6 mGy. DLP: 1965 mGy-cm.
Dictated By: Ramiro Barillas MD
Dictated Date & Time: 10/13/24 1333
Signed/Co-Signer By: Ramiro Barillas MD /
Signed/Co-Signer Date & Time: 10/13/24 1346 /
Data Reviewed
-
Diagnostic Radiology: Image personally visualized and interpreted
CT Scan: Image personally visualized and interpreted
Lab Data: Labs Reviewed
Impression / Plan
-
Patient appears to have progression of brain lesions as well as multiple pulmonary lesions. Options of systemic therapy have been relatively exhausted and in face of progression of disease in the brain in such a short period of time after
craniotomy there is no hope for restorative treatment. The patient arrives to the ER with her living will stating she is DNR/DNI. The family is asking for transition to hospice care. I think it is very appropriate. I would provide combination of
morphine and lorazepam to keep her comfortable. She also has compression fracture in her back which is probably due to metastatic disease. I would consider adding Decadron for better management as well as maybe application of the lidocaine patch.
I had a lengthy conversation with her daughter and sister today and I will continue to support the family through this process. I expressed to them how sad I am about the progress of her malignancy and they appreciated all the care that has been
provided over the last year. I will continue to follow her during the course of hospitalization
--- NOTE | 2024-10-13 19:38 | PTCARENOTE ---
Pt admitted to rm 331 and pulled over from bed to stretcher. Family present in the room. Pt drowsy and not answering questions but opening eyes to verbal and tactile stimuli. Bed alarm placed for safety. Per pt's daughter, pt's to stay
overnight w/ pt. Family oriented to room, call pradhan within reach, and plan of care ongoing.
--- NOTE | 2024-10-13 20:00 | W.PN.UPDATE ---
Update Note
Progress Note Update
Patient unable to take PO medications. Changed Levetiracetam and Ativan to IV.
[2024-10-13] MEDS: KEPPRA 500 MG IV (21:06)
[2024-10-13] MEDS: NSS 500 IV (22:15)
[2024-10-13] MEDS: DECADRON 4 MG IV (22:51)
--- NOTE | 2024-10-14 02:50 | PTCARENOTE ---
Pt unable to take oral meds d/t drowsiness. ASSISTANT ACTIVITIES DIRECTOR notified and Keppra Po and Ativan Po PRN changed to IV (see mar).
At 2205, pt's BP 76/48, HR 73. stated pt did not get Decadron today and that her BP 'crashes' when she does not get it. ASSISTANT ACTIVITIES DIRECTOR notified, 500ml bolus ordered (see MAR). During bolus infusion, manual BP 100/50 and pt moaning in pain. ASSISTANT ACTIVITIES DIRECTOR on
floor to assess pt and discuss plan of care w/ . ASSISTANT ACTIVITIES DIRECTOR ordered Decadron 4mg IV and instructed this RN to give morphine. BP 101/66. Plan of care ongoing.
[2024-10-14] MEDS: OFIRMEV 100 IV ×2 (03:25→09:20)
[2024-10-14 03:31] VITALS: BP 131/79
[2024-10-14] MEDS: MORPHINE SULFATE 2 MG IV ×2 (03:43→09:39)
[2024-10-14] MEDS: ATIVAN 0.5 MG IV ×2 (04:21→10:15)
[2024-10-14] MEDS: NSS (PRESERVATIVE FREE) 0.25 ML IV ×2 (04:21→10:15)
--- NOTE | 2024-10-14 05:53 | PTCARENOTE ---
Pt came up to floor w/ saturated brief at 1930, pt w/ no urine output since then. Bladder scanned for 468mls. Pt asked if she had to urinate and she stated no, this RN gave pt an hour to try to urinate. TIRE BUILDER notified of bladder scan, wellington placement
ordered. 14f wellington placed and 500mls of clear yellow urine out. updated and in room w/ pt. Plan of care ongoing.
[2024-10-14] MEDS: KEPPRA 500 MG IV (09:16)
[2024-10-14 09:30] VITALS: BP 156/93
--- NOTE | 2024-10-14 09:33 | HOSPNOTE ---
Patient is appropriate for [facility] for management of pain that could not be effectively managed outside of the inpatient setting. RN JORGE Baez and Phys notified. Hospice team notified. Daughter Zari is at the bedside. Long discussion with
Teo about Hospice philosophy and services. He requests that we do not use the word 'Hospice' in front of the patient and he prefers the terms 'comfort care' or 'palliative.' Teo does not want a rock crushing machine operator to visit. Pastoral Care and
microbiology technician notified. Teo will meet with hospice office coordinator around noon today to sign Hospice consents.
[2024-10-14] MEDS: DILAUDID 0.5 MG IV (09:57)
--- NOTE | 2024-10-14 10:55 | W.PN.HOSP.TC ---
Today's Communication/Plan
-
to [facility] hospice
Assessment / Plan
Assessment / Plan
Assessment:
Right lower extremity weakness secondary to worsening hemorrhagic metastases of the right brain, new left frontal metastases
Metastatic uterine sarcoma with metastases to lung/brain
Intractable, terminal cancer pain
Plan:
[facility] hospice with morphine drip
Anticipated Discharge: > 48 hours
Subjective/Interval History
-
Date of Service: October 14, 2024
reports pain this AM, requesting further pain meds
to be admitted to [facility] hospice today
Objective Data
-
Vital Signs:
Vital Signs
Temp Pulse Resp BP Pulse Ox
98.7 F 127 18 156/93 96
10/14/24 09:30 10/14/24 09:30 10/14/24 09:30 10/14/24 09:30 10/14/24 09:30
I&O
10/13/24 10/14/24 10/15/24
06:59 06:59 06:59
Output Total 500 / 500
Balance -500 / -500
Physical Exam
-
General: Appears in Distress and Pain
HEENT: Normocephalic and Atraumatic
Cardiac: Regular Rhythm
GI: Soft
Neuro: AO x 3
Psych: Calm
Data Reviewed
-
Total Time Spent with Patient (in minutes): 41
Labs: Labs Reviewed by me
--- NOTE | 2024-10-14 10:58 | W.DS.TRANS ---
DC Summary - Truck Trailer Mechanic
-
Discharge Instructions:
Discharge Diagnosis/Procedures Metastatic uterine sarcoma with metastases to
lung/brain
Diet As tolerated
Other Services Hospice
Instructions:
Stand-Alone Forms:
Changes to Home Medications: Yes
Discharge Medications:
Home Medication Changes
all med stopped for hospice
Pending Results: No
Total time spent discharging patient (in min): 41
--- NOTE | 2024-10-14 15:11 | CM ---
Patient accepted to [facility] with [facility], patient for transfer to [address] [place] [address] and admission to [facility]. CM spoke with family no concerns at this time. CM will continue to follow for discharge planning needs.
Plan: [facility]
== END 2024-10-14 14:34 | disposition hospice, inpatient (51) | DRG 755 ==
LOC: 3 WEST ACU 08:23
PROVIDERS: ADMITTING PHYSICIAN Hospitalist; ATTENDING PHYSICIAN Internal Medicine; CONSULT PHYSICIAN Internal Medicine Hematology & Oncology; EMERGENCY PHYSICIAN Emergency Medicine; FAMILY PHYSICIAN Family Medicine
DX: C55 Malignant neoplasm of uterus, part unspecified (principal); C78.00 Secondary malignant neoplasm of unspecified lung; C79.31 Secondary malignant neoplasm of brain; G89.3 Neoplasm related pain (acute) (chronic); R53.1 Weakness; I10 Essential (primary) hypertension; E78.5 Hyperlipidemia, unspecified
CPT/HCPCS: 70450; 71275; 74177; 80053; 85025; 96374; 99285; Q9967

== ENCOUNTER 2024-10-14 14:34 | Inpatient (IN) | payer OTHER, SELFPAY ==
--- NOTE | 2024-10-14 10:58 | ADM.HSP ---
Admission - Hospice
History of Present Illness
69 yo F Metastatic uterine sarcoma with metastases to lung/brain admitting to [facility] hospice. Evaluated by Electrical Engineering Draftsperson/onc who agrees with patient to move to hospice for symptom control
Reason for Hospice Admission
intractable cancer related pain
Review of Systems
Unable to obtain full review of systems at this time due to: Acuity
Physical Exam
General: Appears in Distress and Pain
Respiratory: Clear to Auscultation, Wheezes and Rales
Cardiology: Regular Rhythm and S1/S2
GI: Soft
Psych: Calm
Assessment/Medication Plan
Assessment:
Right lower extremity weakness secondary to worsening hemorrhagic metastases of the right brain, new left frontal metastases
Metastatic uterine sarcoma with metastases to lung/brain
Intractable, terminal cancer pain
Plan:
[facility] hospice with morphine drip
Data Reviewed
Labs: Labs Reviewed by me
--- NOTE | 2024-10-14 12:31 | HOSPNOTE ---
Addendum entered by Lupe Dallas RN 10/14/24 13:41:
Please do not use the word 'Hospice' in front of the patient per family request.
Original Note:
long discussion with /POA Teo, daughter Zari, sister and [id number]. Reviewed hospice philosophy and services. All in agreement and verbalize understanding with Hospice. Hospice consents signed.
--- NOTE | 2024-10-14 14:38 | PTCARENOTE ---
pt transferred to hospice level of care. pt resting comfortably in bed. Family at bedside. Declined Lesley at this time
[2024-10-14] MEDS: MORPHINE 100 IV (15:21)
--- NOTE | 2024-10-14 15:21 | CM ---
Patient admitted as [facility] and plan is for transfer to [address] [place] [address] when bed is available. Patient family indicated that they were comfortable with plan. CM will continue to follow for discharge planning needs.
Plan; [facility]
[2024-10-14] MEDS: MORPHINE SULFATE 4 MG IV (15:23)
--- NOTE | 2024-10-14 15:41 | PTCARENOTE ---
Morphine gtt started per protocol see DEC. family at bedside.
[2024-10-14] MEDS: MORPHINE SULFATE 2 MG IV ×5 (16:11→23:21)
--- NOTE | 2024-10-14 17:54 | PTCARENOTE ---
pt transferred to with morphine gtt. Report called. resting comfortably in bed family at bedside.
[2024-10-14] MEDS: ATIVAN 2 MG IV ×3 (18:10→23:20)
--- NOTE | 2024-10-14 18:34 | PTCARENOTE ---
Received pt from [facility]W with RN and PCT at bedside, morphine gtt step 1 infusing into right subq port with lockbox in place, oral and fernando care complete, pt groaning and calling out, medicated with ativan and morphine breakthrough dose, comfort box
ordered, wellington catheter draining clear yellow, pt resting comfortably in bed with family and friends at bedside at this time.
--- NOTE | 2024-10-14 18:36 | PTCARENOTE ---
Upon transfer of this pt, RN noted previous RN did not complete admission while flipping the chart. Admission complete.
[2024-10-14 18:40] VITALS: BP 156/93
[2024-10-14] MEDS: NSS (PRESERVATIVE FREE) 1 ML IV (23:20)
[2024-10-14 23:27] VITALS: BP 116/82
[2024-10-15] MEDS: MORPHINE SULFATE 2 MG IV ×5 (00:15→07:55)
[2024-10-15] MEDS: ROBINUL 0.2 MG IV (00:15)
[2024-10-15] MEDS: ATIVAN 2 MG IV ×2 (05:30→07:54)
[2024-10-15] MEDS: NSS (PRESERVATIVE FREE) 1 ML IV ×2 (05:30→07:55)
[2024-10-15 07:35] VITALS: BP 89/57
[2024-10-15] MEDS: TYLENOL/FEVERALL 650 MG RECTAL (07:54)
--- NOTE | 2024-10-15 08:20 | W.PN.DEATH ---
Pronouncement of
-
Called to see patient to pronounce.
No spontaneous heart tones or respirations noted.
Patient not responsive to verbal stimuli.
Patient is pronounced .
Time of : 08:06
Date of : 10/15/24
Cause of : metastatic uterine sarcoma with hemorrhagic brain metastases
Family Notified: Yes
--- NOTE | 2024-10-15 08:58 | HOSPNOTE ---
Patient minutes before hospice nurses arrival. Spoke with and daughter in patient room. They stated was peaceful and are extremely grateful to staff on . Family grieving appropriately. Explained bereavement services.
Body is being donated to science through [facility] home will transport the body to a local med school.
--- NOTE | 2024-10-15 09:02 | PTCARENOTE ---
Upon initial assessment of pt this AM by this RN, pt found to have passed during hygiene care. MD notified, pt pronounced. Comfort provided to family at this time. RENUKA called, wellington catheter and subq port removed from pt. No assessment et al
documented because pt passed before an assessment could be completed. Family at bedside with pt at this time, do not enter sign placed.
== END 2024-10-15 08:06 | disposition expired | DRG 951 ==
LOC: 2 NORTH 14:34
PROVIDERS: ADMITTING PHYSICIAN Internal Medicine
DX: Z51.5 Encounter for palliative care (principal); I61.9 Nontraumatic intracerebral hemorrhage, unspecified; C78.00 Secondary malignant neoplasm of unspecified lung; C79.31 Secondary malignant neoplasm of brain; C55 Malignant neoplasm of uterus, part unspecified; G89.3 Neoplasm related pain (acute) (chronic); R53.1 Weakness